=== PATIENT | male | born 1970 | race Caucasian/White ===

== ENCOUNTER 2019-06-28 11:50 | Emergency (ER) | payer MEDICARE, SELFPAY ==
--- NOTE | ~2019-06-28 | XR_ITS ---
EXAMINATION: XR abdomen/kub 1V DATE: 06/28/2019 16:23 INDICATION: Left-sided kidney stone TECHNIQUE: A supine view of the abdomen on 2 radiographs was obtained. COMPARISON: None FINDINGS: 9 mm stone projects over the left psoas muscle likely in the proximal left ureter. 2 mm stone project s over the lower pole of the right kidney. There are likely a couple additional tiny stones at the mi d right kidney however sensitivity and specificity is decreased by prominent mild stool in the superi mposed colon. No definitive stone seen in the left kidney. Linear pattern of calcifications projectin g over the left sacral ala with orientation suggesting atherosclerotic calcific a cyst in the left co mmon iliac artery. No dilated loops of bowel to suggest obstruction. Visualized lung bases are clear. Bones are unremarkable. IMPRESSION: 1. 9 mm stone in the proximal left ureter. At least one and likely three, 2 mm or smaller stones at t he right kidney. Reviewed, dictated and finalized at location A. ENT DEVELOPMENT COORDINATOR IMPRESSION: 1. 9 mm stone in the proximal left ureter. At least one and likely three, 2 mm or smaller stones at the right kidney.
[2019-06-28 12:01] VITALS: BP 141/86; PULSE 78; RESP 20; TEMP 37.1; O2SAT 98
--- NOTE | 2019-06-28 13:06 | ED.MALEGU ---
HPI - Male Genitourinary General Chief complaint: Urogenital-Male Stated complaint: Needs referral to urology Time Seen by Provider: 06/28/19 13:05 Source: patient and RN notes reviewed Mode of arrival: ambulatory Limitations: no limitations History of Present Illness HPI Narrative: A 49 y/o male presents to the ED with LLQ ABD and lt groin pain beginning this morning. He states that he developed severe LLQ ABD and lt groin pain this morning and was seen in [facility] ED. He reports that he had a ABD CT which showed a 5mm lt kidney stone, so he was given pain medication which alleviated his pain. He notes that [facility] didn't have a urologist conduit mechanic, so they d/c him and recommended that he comes here or goes to [facility]. He denies any fevers, chills, SOB, CP, N/V/D, and any other medical complaints at this time. Complaint: other (LLQ ABD and lt groin pain) Onset (ago): hour(s) (this morning) Duration: improved Location: left inguinal region and abdomen (LLQ) Relieving factors: medication Associated symptoms: Reports denies other symptoms Related Data Allergies Allergy/AdvReac Type Severity Reaction Status Date / Time No Known Allergies Allergy Verified 06/28/19 12:04 Review of Systems Review of Systems: All systems reviewed & are unremarkable except as noted in HPI and below Constitutional: Constitutional: Denies chills, Denies fatigue, Denies fever(s), Denies headache(s) and Denies night sweats Eyes: Eyes: Denies change in vision, Denies loss of vision and Denies other visual disturbances ENT: Denies headache(s), Denies hoarseness, Denies epistaxis, Denies nasal congestion and Denies sore throat Cardiovascular: Cardiovascular: Denies chest pain, Denies leg edema, Denies palpitations and Denies dyspnea Respiratory: Respiratory: Denies cough, Denies dyspnea and Denies wheezing Gastrointestinal: Gastrointestinal: Reports abdominal pain (LLQ), Denies diarrhea, Denies nausea and Denies vomiting Genitourinary: Genitourinary: Denies hematuria, Denies dysuria, Denies urinary frequency and Reports other (lt groin pain) Musculoskeletal: Musculoskeletal: Denies abnormal gait, Denies deformity, Denies joint swelling, Denies muscle weakness and Denies numbness Integumentary/Breasts: Skin/Breast: Denies rash, Denies unusual bruising and Denies wounds Neurologic: Denies abnormal gait, Denies headache(s), Denies focal weakness, Denies loss of vision and Denies numbness Psychiatric: Psychiatric: Reports no additional psychiatric complaints Endocrine: Endocrine: Denies fatigue and Denies palpitations Hematologic/Lymphatic: Hematologic/Lymphatic: Denies easy bleeding and Denies easy bruising Allergic/Immunologic: Allergic/Immunologic: Denies wheezing PMFSH Past Medical History Medical History (Updated 06/28/19 @ 17:50 by Viktor Chowdhury MD) Blindness of both eyes Medical history unknown Surgical History Surgical History (Updated 06/28/19 @ 14:23 by Jase Patrick) 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 Surgical history unknown Social History Social History (Updated 06/28/19 @ 14:23 by Jase Patrick) Smoking status: Unknown if ever smoked Comments PCP: Dr. Moon. Exam Const: General: healthy appearing, no acute distress and well developed Nutritional Appearance: well nourished Orientation/consciousness: patient oriented x3 (alert) and Other orientation findings (Alert) Limitations: no limitations HENMT: Head: normocephalic and atraumatic Ears: external ears normal General nose exam: No nasal discharge present and no epistaxis Face and sinus: face symmetric Mouth: Yes lip normal, Yes tongue normal and Yes moist mucous membranes Throat: other (No exudate, no erythema) Eyes: Conjunctivae: conjunctivae normal Sclera: sclerae normal EOM: EOMs intact bilaterally Neck: Neck: full ROM, no lymphadenopathy and supple Thyroid: thyroid normal Chest: Chest palpation & inspection: no tenderness Resp: Effort & Inspection:
[2019-06-28 13:44] LABS: Basophils Percent Auto 0.5 % (0.2-1.2); Eosinophils Absolute Auto 0.1 K/mm3 (0-0.3); Hematocrit 42.6 % (42.0-52.0); Hemoglobin 14.7 g/dL (14.0-18.0); Immature Granulocyte Absolute 0.03 K/mm3 (0.00-0.031); Immature Granulocyte Percent A 0.4 % (0-0.5); Lymphocytes Absolute Auto 1.32 K/mm3 (0.9-3.2); Lymphocytes Percent Auto 16.7 % (18.3-44.2); Mean Corpuscular HGB Conc 34.5 g/dl (32-36); Mean Corpuscular Hemoglobin 33.6 pg (26-34); Mean Corpuscular Volume 97.3 fl (80-100); Mean Platelet Volume 9.6 fl (7.4-10.4); Monocytes Absolute Auto 0.8 K/mm3 (0.1-0.6); Monocytes Percent Auto 10.1 % (2.6-8.5); Neutrophils Absolute Auto 5.6 K/mm3 (1.3-6.7); Neutrophils Percent Auto 71.3 % (45.5-73.1); Platelet Count Result 210 k/mm3 (150-375); Red Blood Count 4.38 M/mm3 (4.6-6.20); Red Cell Distribution Width 12.3 % (11.5-14.5); White Blood Count 7.9 K/mm3 (4.5-10.0)
[2019-06-28 13:54] LABS: Alanine Aminotransferase 19 U/L (4-50); Alkaline Phosphatase 41 U/L (38-126); Aspartate Amino Transferase 21 U/L (17-59); Bilirubin,Total 0.9 mg/dL (0.2-1.3); Blood Urea Nitrogen 24 mg/dL (9-20); Calcium 8.9 mg/dL (8.4-10.2); Carbon Dioxide 23 mmol/L (22-30); Chloride 99 mmol/L (98-107); Estimated CRCL calculation 59 ml/min; Estimated Glomerular Filt Rate 47; Glucose 110 mg/dL (75-110); Potassium 4.5 mmol/L (3.4-5.0); Sodium 136 mmol/L (137-145)
[2019-06-28 14:46] LABS: Add Urine Microscopic? NO; Appearance Urine Clear (Clear); Bilirubin Urine Negative (Negative); Blood Urine Negative (Negative); Color Urine Yellow (Yellow); Glucose Urine UA Negative (Negative); Ketones Urine Negative (Negative); Leukocyte Esterase Ur Negative LEU/UL (Negative); Mucus Urine Rare /lpf; Nitrate Urine Negative (Negative); Protein Urine Negative (Negative); RBC Urine 0-2 /hpf (0-2); Specific Grav Ur 1.015 (1.001-1.035); Urobilinogen Urine Negative mg/dL (<2.0); WBC Urine 0-3 /hpf
--- NOTE | 2019-06-28 15:43 | PC.NURSE ---
Dr. Chowdhury notified that pt is having 8/10 left flank and lower left quadrant pain. Dr. Chowdhury said to not put in any pain medication or give any medication yet. Dr. Chowdhury stated that he is aware of the pain and he wants to talk to urology first.
[2019-06-28] MEDS: ONDANSETRON HCL ODT 4 MG TABLET PO (16:02)
--- NOTE | 2019-06-28 16:03 | PC.NURSE ---
Dr. Chowdhury was reminded that pt had an IV for pain medication and anti emetic. Dr. Chowdhury acknowledged pt's IV and stated that pt would be going home and will just take the PO meds. Dr. Chowdhury reminded that pt was having 8-9/[address] Chowdhury again stated that pt will just take the PO meds and not any IV meds instead. Pt and his very aggravated about the delay in getting answers about what was happening today and about the delay in pain medication. I attempted to discuss the process of Dr. Chowdhruy talking to [place] about pt's earlier visit today and the urologist but pt and his became increasingly agitated and raising their voices, asking, What is the REAL problem here? What is going on?! ALISA Gandhi, and myself reinforced the fact that we were working to give them answers, provide medication, and prepare them to go home and be more comfortable and follow up with urology.
[2019-06-28] MEDS: TAMSULOSIN HCL 0.4 MG CAPSULE PO (17:04)
== END 2019-06-28 18:06 | disposition home or self-care (01) ==
PROVIDERS: Emergency Provider Emergency Medicine
DX: N20.2 Calculus of kidney with calculus of ureter (principal); Z94.7 Corneal transplant status; H54.3 Unqualified visual loss, both eyes
CPT/HCPCS: 36415; 74018; 80053; 81003; 85025; 99283; A9270

== ENCOUNTER 2024-04-29 06:17 | Inpatient (IN) | payer MEDICARE, SELFPAY ==
[2024-04-29] VITALS (10 sets, daily range): BP systolic 117–147; BP diastolic 59–94; PULSE 92–130; RESP 13–23; TEMP 36.9; O2SAT 94–99; BMI 30.2
--- NOTE | ~2024-04-29 | CT_ITS ---
CT soft tissue neck w con Ordering provider: Capri Storey MD History: 54 years Male with . Abscess back of the neck . Comparison: None. Technique: CT soft tissues neck was performed with contrast. . Automated exposure control and iterat marian reconstruction technique were employed. The dose-length product was 499.81 mGy-cm. 75 mL Omnipaqu e 350 was given IV. Findings: LOWER HEAD: The visualized brain parenchyma, optic globes/orbits and mastoids are normal. The visua lized paranasal sinuses are well aerated. Right maxillary sinus disease. SALIVARY GLANDS: Normal. THYROID: Normal. SUPRAHYOID DEEP SPACES: Normal. CAROTID ARTERIES: Normal. JUGULAR VEINS: Normal. TONSILS: Normal. ORAL CAVITY: Partially obscured by dental amalgam but normal as visualized. PHARYNX, LARYNX AND TRACHEA: Patent and normal. No prevertebral soft tissue swelling. SUPERFICIAL SOFT TISSUES: Fat stranding seen in the subcutaneous tissues of the back of the neck with minimal fluid seen on the right side posterior to the muscles. Early abscess formation is not exclud ed. No lymphadenopathy or neck mass. THORACIC INLET/VISUALIZED UPPER CHEST: Normal. SKELETAL: Age appropriate degenerative changes. IMPRESSION: Fat stranding in the posterior aspect of the neck subcutaneous tissues suggestive of cellulitis with focal area of fluid adjacent to the muscles on the right side with thickness of 6 mm suggestive of ea rly abscess formation. Follow-up advised. Reviewed, dictated and finalized at location A. [facility] IMPRESSION: Fat stranding in the posterior aspect of the neck subcutaneous tissues suggesti ve of cellulitis with focal area of fluid adjacent to the muscles on the right side with thickness of 6 mm suggestive of early abscess formation. Follow-up ad vised.
--- NOTE | ~2024-04-29 | CT_ITS ---
CORRECTED REPORT corrected order to CT soft tissue neck w [facility] [place] 05/01/24 This report was recreated on 05/01/24. Original report was BOTOMY LAB ASSISTANT EXAMINATION: CT soft tissue neck w DATE: 05/01/2024 16:37 INDICATION: Neck abscess. TECHNIQUE: Computed tomography (CT) of the neck was performed with 75 mL Omnipaque-350 intravenous contrast. Automated exposure control and iterative reconstruction technique were employed. The dose-length product was 567.48 mGy- cm. COMPARISON: Neck CT 04/29/2024 FINDINGS: There are implants in the orbits bilaterally. There are surgical changes of the ocular globes. There are no pathologically enlarged lymph nodes. In the posterior neck, there is subcutaneous fat stranding, consistent with cellulitis. There is hypodensity in the right posterior neck musculature, consistent with myositis. The mastoid air cells are normal. There is moderate cervical spondylosis. IMPRESSION: 1. Posterior neck cellulitis and myositis. No abscess. Reviewed, dictated and finalized at location A. BOTOMY LAB ASSISTANT MTDD
--- NOTE | 2024-04-29 07:35 | ED_ITS ---
HPI - Skin/Abscess/Foreign Bdy General Chief complaint: Skin/Abscess/Foreign Body Stated complaint: abscess on neck Time Seen by Provider: 04/29/24 07:09 Source: patient and family Mode of arrival: ambulatory Limitations: no limitations History of Present Illness HPI narrative: 54 years old white male came to the ED with intermittent infection at the back of his neck for over 1 year. Patient reports it get bigger then open up and leak and then be, sore and then resolves. Started again at thanks given, not improving, getting worse. History of diabetes hyperlipidemia, does not smoke or drink or use drugs, legally blind Related Data Home Medications ?Medication ?Instructions ?Recorded ?Confirmed ?Last Taken ?Type albuterol sulfate 90 mcg/actuation 2 puff inhalation Q4H PRN 04/29/24 04/29/24 10/19/23 History aerosol inhaler shortness of breath or wheezing alprazolam 0.25 mg tablet 0.25 mg PO DAILY PRN anxiety 04/29/24 04/29/24 04/28/24 History aspirin 81 mg tablet,delayed 81 mg PO QHS 04/29/24 04/29/24 04/28/24 History release (Adult Aspirin Regimen) brimonidine 0.15 % eye drops 1 drp RIGHT EYE DAILY 04/29/24 04/29/24 04/28/24 History latanoprostene bunod 0.024 % eye 1 drp RIGHT EYE QHS 04/29/24 04/29/24 04/28/24 History drops (Vyzulta) metformin 500 mg tablet 500 mg PO QPM 04/29/24 04/29/24 04/28/24 History mycophenolate mofetil 250 mg 500 mg PO BID 04/29/24 04/29/24 04/28/24 History capsule ofloxacin 0.3 % eye drops 1 drp EACH EYE BID 04/29/24 04/29/24 04/28/24 History prednisolone acetate 1 % eye 1 drp EACH EYE BID 04/29/24 04/29/24 04/29/24 History drops,suspension semaglutide 0.25 mg or 0.5 mg (2 0.25 mg subcut WEEKLY 04/29/24 04/29/24 04/22/24 History mg/3 mL) subcutaneous pen injector (Ozempic) simvastatin 40 mg tablet 40 mg PO QHS 04/29/24 04/29/24 04/28/24 History timolol maleate 0.5 % eye drops 1 drp RIGHT EYE QHS 04/29/24 04/29/24 04/28/24 History valacyclovir 1 gram tablet 1,000 mg PO Q12H 04/29/24 04/29/24 04/28/24 History zolpidem 10 mg tablet 20 mg PO QHS PRN insomnia 04/29/24 04/29/24 04/28/24 History Allergies Allergy/AdvReac Type Severity Reaction Status Date / Time No Known Allergies Allergy Verified 04/29/24 06:27 Review of Systems 2 Review of Systems: All systems reviewed & are unremarkable except as noted in HPI and below PMFSH Past Medical History Medical History (Updated 04/29/24 @ 16:39 by Marlee Jang APRN) DM2 (diabetes mellitus, type 2) 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 Social History Social History Smoking status: Never smoker Alcohol intake: never Substance use: never Do You Feel Safe in your Home?: Yes Lack of Transportation: YES Lack of Food: Never True Current Housing: I Do Not Have Housing Concerned About Future Housing: No Difficulty Paying Gas/Electric Bills: No Difficulty Paying for Meds: No Currently Unemployed: No Education: Grade School Difficulty w/ Childcare or Family Care: No Spiritual care concerns: No Exam 2 Narrative: General appearance: Well-developed, well-nourished Skin: Normal color Head: Normocephalic, nontraumatic Eyes: Clear conjunctiva ENT: Oropharynx normal, ears normal, nose normal Neck: 1 cm x 1 cm opening at the back of the neck, with pus at the base of it, surrounded by erythema and diffuse tenderness Chest and respiratory: Airway patent, no respiratory distress, no accessory muscle use Heart: Regular rate/rhythm Musculoskeletal: Normal range of motion, nontender back Neurologic: Alert and oriented ?3, MEDICAL RECORD SPECIALIST is normal as tested, no gross motor deficit Course Consultations Consultation #1: DR GONZALEZ Date: 04/29/24 Time: 11:30 Vital Signs Vital signs: Vital Signs Temperature 36.9 C 04/29/24 06:10 Pulse Rate 128 H 04/29/24 06:10 Respiratory Rate 16 04/29/24 06:10 Blood Pressure 129/94 H 04/29/24 06:10 Pulse Oximetry 99 04/29/24 06:10 Oxygen Delivery Room Air 04/29/24 06:10 Temperature 36.9 C 04/29/24 14:00 Pulse Rate 111 H 04/29/24 14:00 Respiratory Rate 18 04/29/24 14:00 Blood Pressure 135/59 L 04/29/24 14:00 Pulse Oximetry 97 04/29/24 14:00 Oxygen Delivery Room Air 04/29/24 13:00 MDM - Skin/Abscess/Foreign Bdy MDM Narrative Medical decision making narrative: Patient presents with intermittent abscess formation at the back of his neck over 1 year Vital signs showing heart rate of 128 beats per minute Physical examination consistent with infected skin/abscess, carbuncle the back of the neck Blood workup today includes CBC, CMP, blood culture, lactic acid, CRP showed WBC of 21.1, sodium 133, glucose 163, total bilirubin 1.7, C-reactive protein 2.7, CT soft tissue neck with contrast showed cellulitis, abscess formation Patient started on vancomycin and Zosyn on arrival to the ED. Differential Diagnosis Differential diagnosis: Likely abscess of skin or subcutaneous tissue and cellulitis Medical Records Attestation: I reviewed the patient's medical records. Lab Data Attestation: I reviewed the patient's lab results. 04/29/24 08:37 04/29/24 08:37 Labs: Lab Results 04/29/24 Range/Units 08:37 WBC 21.1 H (4.5-10.0) K/mm3 RBC 4.21 L (4.6-6.20) M/mm3 Hgb 14.0 (14.0-18.0) g/dL Hct 40.0 L (42.0-52.0) % MCV 95.0 (80-100) fl MCH 33.3 (26-34) pg MCHC 35.0 (32-36) g/dl RDW 12.6 (11.5-14.5) % Plt Count 250 (150-375) k/mm3 MPV 9.5 (7.4-10.4) fl Immature Gran % (Auto) 0.9 H (0-0.5) % Neut % (Auto) 85.0 H (45.5-73.1) % Lymph % (Auto) 5.5 L (18.3-44.2) % [place] % (Auto) 8.2 (2.6-8.5) % Eos % (Auto) 0.1 (0-4.4) % Baso % (Auto) 0.3 (0.2-1.2) % Lymph # (Auto) 1.15 (0.9-3.2) K/mm3 [place] # (Auto) 1.7 H (0.1-0.6) K/mm3 Eos # (Auto) 0.0 (0-0.3) K/mm3 Baso # (Auto) 0.1 (0.0-0.1) K/mm3 Abs Immat Gran (auto) 0.18 H (0.00-0.031) K/mm3 Absolute Neuts (auto) 17.9 H (1.3-6.7) K/mm3 Absolute Nucleated RBC 0.000 (0.0-0.012) K/mm3 Nucleated RBC % 0.0 (0.0-0.2) % Sodium 133 L (137-145) mmol/L Potassium 3.6 (3.4-5.0) mmol/L Chloride 105 (98-107) mmol/L Carbon Dioxide 24 (22-30) mmol/L Anion Gap 4 (4-12) mmol/L BUN 12 D (9-20) mg/dL Creatinine 0.80 (0.7-1.3) mg/dL Estim Creat Clear Calc 107 ml/min Estimated GFR > 60 (59 - ) Glucose 163 H (65-110) mg/dL Hemoglobin A1c 7.4 H (<5.7) % Lactic Acid 1.6 (0.7-2.0) mmol/L Calcium 8.7 (8.4-10.2) mg/dL Total Bilirubin 1.7 H (0.2-1.3) mg/dL AST 19 (17-59) U/L ALT 22 (6-50) U/L Alkaline Phosphatase 64 (38-126) U/L C-Reactive Protein 2.7 H (<1.0) mg/dL Total Protein 7.0 (6.3-8.2) g/dL Albumin 3.9 (3.5-5.1) g/dL Imaging Data Radiologist's impression: Impressions Soft Tissue Neck CT 04/29/24 09:43 IMPRESSION: Fat stranding in the posterior aspect of the neck subcutaneous tissues suggestive of cellulitis with focal area of fluid adjacent to the muscles on the right side with thickness of 6 mm suggestive of early abscess formation. Follow- up advised. Critical Care Time Critical Care Time Critical Care Time: Yes Total Critical Care Time: 30 Discharge Plan Discharge Clinical Impression: Cellulitis and abscess of neck Patient Disposition: Still a Patient Condition: Stable
[2024-04-29] MEDS: HYDROmorphone HCL INJ (*CRX) 1 MG/ML SYR 0.5 MG IV PUSH (07:53)
[2024-04-29] MEDS: ONDANSETRON INJ 4 MG/2 ML VIAL IV PUSH (07:53)
[2024-04-29] MEDS: SODIUM CHLORIDE 0.9% IV 1,000 ML 999 ML IV CONT (07:53)
[2024-04-29] MEDS: VANCOMYCIN 1,500 MG/NS 500 ML 1,500 MG/500 ML BAG 250 MG IVPB ×2 (09:00→21:23)
[2024-04-29 09:10] LABS: Lactic Acid Reflex 1.6 mmol/L (0.7-2.0)
[2024-04-29 09:14] LABS: Alanine Aminotransferase 22 U/L (6-50); Albumin Level 3.9 g/dL (3.5-5.1); Alkaline Phosphatase 64 U/L (38-126); Anion Gap 4 mmol/L (4-12); Aspartate Amino Transferase 19 U/L (17-59); Bilirubin,Total 1.7 mg/dL (0.2-1.3); Blood Urea Nitrogen 12 mg/dL (9-20); CRP 2.7 mg/dL (<1.0); Calcium 8.7 mg/dL (8.4-10.2); Carbon Dioxide 24 mmol/L (22-30); Chloride 105 mmol/L (98-107); Estimated CRCL calculation 107 ml/min; Estimated Glomerular Filt Rate > 60; Glucose 163 mg/dL (65-110); Potassium 3.6 mmol/L (3.4-5.0); Sodium 133 mmol/L (137-145)
[2024-04-29 09:25] LABS: Basophils Absolute Auto 0.1 K/mm3 (0.0-0.1); Basophils Percent Auto 0.3 % (0.2-1.2); Eosinophils Percent Auto 0.1 % (0-4.4); Immature Granulocyte Absolute 0.18 K/mm3 (0.00-0.031); Immature Granulocyte Percent A 0.9 % (0-0.5); Lymphocytes Absolute Auto 1.15 K/mm3 (0.9-3.2); Lymphocytes Percent Auto 5.5 % (18.3-44.2); Mean Corpuscular Hemoglobin 33.3 pg (26-34); Mean Platelet Volume 9.5 fl (7.4-10.4); Monocytes Absolute Auto 1.7 K/mm3 (0.1-0.6); Monocytes Percent Auto 8.2 % (2.6-8.5); Neutrophils Absolute Auto 17.9 K/mm3 (1.3-6.7); Platelet Count Result 250 k/mm3 (150-375); Red Blood Count 4.21 M/mm3 (4.6-6.20); Red Cell Distribution Width 12.6 % (11.5-14.5); White Blood Count 21.1 K/mm3 (4.5-10.0)
[2024-04-29] MEDS: KETOROLAC 30 MG/ML VIAL (*BKC) IV PUSH (10:16)
[2024-04-29] MEDS: PIPERACILLN/TAZ 3.375GM/NS50ML 3.375 GM/50 ML BAG IVPB ×2 (11:33→16:22)
[2024-04-29 12:01] LABS: Hemoglobin A1C 7.4 % (<5.7)
--- NOTE | 2024-04-29 12:25 | ADMGEN ---
This patient, Jason Granda, was admitted to [facility] Surg Room 330-02. Patient/family oriented to hospital policies and general routines including ID bracelet, bed and alarms, visiting hours, pain management, procedures, bathroom and other care routines, personal items, smoking policy, room service/diet, and visiting hours. Information on how to activate the Rapid Response Team has been discussed. Patient/Family are encouraged to report perceived risks to care and to ask questions if they do not understand what they are told or what they should do.
--- NOTE | 2024-04-29 12:50 | P.HP_ITS ---
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 The patient presents here from home via EMS for further evaluation of a neck wound. The patient reports he has a small chronic cyst to the back of his neck for the past year. Patient reports he would previously pop this region, it would scab over and go away for some time. Recently he try to pop this wound on 04/16. Yesterday (04/28) the area just above where he typically has the small pea-sized knot became tender with increased swelling and redness. Has since become tender to his bilateral shoulders and right side of his neck. When he woke this morning he felt panicked and short of breath, has since resolved. Arrived to the emergency department with a Band-Aid over same region with yellow drainage. The patient is now also experiencing chills, nausea, tachycardia and anxiety. Chills began last night. The patient has been taking Tylenol for this at home, with last dose at 11:00 p.m. last night. Denies dysphagia or intoleran ce of his secretions. No previous history of surgeries to same region. Denies previous history of prior wounds or previous skin infections. Patient has previous hx of prediabetes which was treated with Metformin and weight loss. Did have recent A1C in 9.6% 2 months ago, placed back on Metformin and Ozempic (which has helped patient to lose 25-30 lbs). Initial VS at presentation: 98.4? F, HR 128, RR 16, 129/94, 99% on RA. ED workup showed: WBC 21.1, no anemia, sodium 133, creatinine 0.8 and GFR >60, glucose 163, A1c 7.4%, lactic 1.6, CRP 2.7. CT soft tissue neck showed fat stranding in the posterior aspect of the neck subcutaneous tissues suggestive of cellulitis with focal area of fluid adjacent to the muscles on the right side with thickness of 6 mm suggestive of early abscess formation. 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 Social History Social History Smoking status: Never smoker Alcohol intake: never Substance use: never Do You Feel Safe in your Home?: Yes Lack of Transportation: YES Lack of Food: Never True Current Housing: I Do Not Have Housing Concerned About Future Housing: No Difficulty Paying Gas/Electric Bills: No Difficulty Paying for Meds: No Currently Unemployed: No Education: Grade School Difficulty w/ Childcare or Family Care: No Spiritual care concerns: No Meds Home Medications and Allergies Home Medications ?Medication ?Instructions ?Recorded ?Confirmed ?Type albuterol sulfate 90 mcg/actuation 2 puff inhalation Q4H PRN 04/29/24 04/29/24 History aerosol inhaler shortness of breath or wheezing alprazolam 0.25 mg tablet 0.25 mg PO DAILY PRN anxiety 04/29/24 04/29/24 History aspirin 81 mg tablet,delayed 81 mg PO QHS 04/29/24 04/29/24 History release (Adult Aspirin Regimen) brimonidine 0.15 % eye drops 1 drp RIGHT EYE DAILY 04/29/24 04/29/24 History latanoprostene bunod 0.024 % eye 1 drp RIGHT EYE QHS 04/29/24 04/29/24 History drops (Vyzulta) metformin 500 mg tablet 500 mg PO QPM 04/29/24 04/29/24 History mycophenolate mofetil 250 mg 500 mg PO BID 04/29/24 04/29/24 History capsule ofloxacin 0.3 % eye drops 1 drp EACH EYE BID 04/29/24 04/29/24 History prednisolone acetate 1 % eye 1 drp EACH EYE BID 04/29/24 04/29/24 History drops,suspension semaglutide 0.25 mg or 0.5 mg (2 0.25 mg subcut WEEKLY 04/29/24 04/29/24 History mg/3 mL) subcutaneous pen injector (Ozempic) simvastatin 40 mg tablet 40 mg PO QHS 04/29/24 04/29/24 History timolol maleate 0.5 % eye drops 1 drp RIGHT EYE QHS 04/29/24 04/29/24 History valacyclovir 1 gram tablet 1,000 mg PO Q12H 04/29/24 04/29/24 History zolpidem 10 mg tablet 20 mg PO QHS PRN insomnia 04/29/24 04/29/24 History Allergies Allergy/AdvReac Type Severity Reaction Status Date / Time No Known Allergies Allergy Verified 04/29/24 06:27 Vital Signs Vital Signs - 24 hr 04/29/24 06:10 04/29/24 06:18 04/29/24 06:30 Temperature 98.4 F Pulse Rate 128 H 130 H 130 H Respiratory Rate 16 22 H Blood Pressure 129/94 H 129/94 H Pulse Oximetry 99 99 Oxygen Delivery Room Air 04/29/24 07:58 04/29/24 09:03 04/29/24 09:16 Temperature Pulse Rate 119 H 111 H 109 H Respiratory Rate 22 H 19 19 Blood Pressure 117/94 H 147/75 H Pulse Oximetry 98 94 94 Oxygen Delivery 04/29/24 10:19 04/29/24 12:18 Temperature Pulse Rate 107 H 106 H Respiratory Rate 23 H 13 Blood Pressure 127/88 125/76 Pulse Oximetry 96 97 Oxygen Delivery Exam Const: General: comfortable and no acute distress Other: , male, nontoxic appearance HENMT: Face/Nose/Sinus: Normal nares present Mouth: Yes moist mucous membranes Eyes: Sclera: sclerae normal Other: + strabismus. + blindness bilaterally. Resp: Effort & Inspection: normal respiratory effort Auscultation: clear to auscultation bilaterally Cardio: Rate: regular rate Rhythm: regular rhythm Other: S1-S2 present without murmur, rub, ectopy GI: Other: Abdomen soft, nondistended, nontender. Skin: General skin exam: normal color and no rashes or lesions noted Wounds: wounds noted Other: induration measuring 7 x 2-3 cm, midline and tracks right to lateral neck. very tender. wound not open and has mild erythema with no clear line of demarcation. Neuro: Speech: normal speech Motor exam (neuro): 5/5 motor strength present throughout Sensory Exam: normal sensation Other: A&O x4 Extrem: General: normal to inspection Psych: Mental Status: mental status grossly normal Affect: normal affect Other: Good insight and judgment, very pleasant H&P: Results Labs Labs: Short CBC 04/29/24 Range/Units 08:37 WBC 21.1 H (4.5-10.0) K/mm3 Hgb 14.0 (14.0-18.0) g/dL Hct 40.0 L (42.0-52.0) % Plt Count 250 (150-375) k/mm3 BMP 04/29/24 08:37 Sodium 133 L Potassium 3.6 Chloride 105 Carbon Dioxide 24 BUN 12 D Creatinine 0.80 Glucose 163 H Calcium 8.7 Liver Function 04/29/24 Range/Units 08:37 Total Bilirubin 1.7 H (0.2-1.3) mg/dL AST 19 (17-59) U/L ALT 22 (6-50) U/L Alkaline Phosphatase 64 (38-126) U/L Albumin 3.9 (3.5-5.1) g/dL Assessment and Plan Assessment and plan (1) Sepsis: Qualifiers: Sepsis acute organ dysfunction status: without acute organ dysfunction Sepsis type: sepsis due to unspecified organism Qualified Code(s): A41.9 - Sepsis, unspecified organism Code(s): A41.9 - Sepsis, unspecified organism Status: Acute Assessment and Plan: - meets SIRS criteria: HR, WBC - lactic acid: 1.6 - 30 mL/kg = 2700, initially given 1L bolus in ED and started on maintenance fluids. Will add additional 1L bolus, has already received 1500 mL. - suspected source: Neck abscess - started on Zosyn and vancomycin - blood cultures drawn on 04/29, follow - monitor hemodynamics (2) Cellulitis and abscess of neck: Code(s): L03.221 - Cellulitis of neck; L02.11 - Cutaneous abscess of neck Status: Acute Assessment and Plan: - CT soft tissue neck: Fat stranding in the posterior aspect of the neck subcutaneous tissues suggestive of cellulitis with focal area of fluid adjacent to the muscles on the right side with thickness of 6 mm suggestive of early abscess formation. Follow-up advised. - started on Vancomycin and Zosyn on 04/29 - general surgery consulted, awaiting formal recs - aerobic/anaerobic wound culture, fungal culture? - IV fluids: 1L bolus -> 125 mL/hr - analgesics p.r.n. - trend labs (3) DM2 (diabetes mellitus, type 2): Qualifiers: Diabetes mellitus bed bug exterminator insulin use: without senior care use Diabetes mellitus complication status: with skin complications Diabetes mellitus complication detail: with other skin complication Qualified Code(s): E11.628 - Type 2 diabetes mellitus with other skin complications Code(s): E11.9 - Type 2 diabetes mellitus without complications Status: Acute Assessment and Plan: - hypoglycemia protocol - POC blood glucose ACHS - home medication: Hold Ozempic (NF) and metformin, received contrast during initial evaluation. - correct regimen ordered - moderate dose TIDWM, based off BMI - A1C 7.4% on 04/29/24 Plan Diet: Diabetic GI Prophylaxis: Not currently indicated DVT Prophylaxis: Lovenox subQ Lines: Peripheral Code Status: Full code Quality VTE Prophylaxis VTE prophylaxis: pharmacologic ordered Hospitalist [facility] Advance Care Plan I have confirmed that the patient's Advanced Care Plan is present, code status is documented, or surrogate decision maker is listed in patient medical record.: Yes Medication Reconciliation I have utilized all available resources to obtain, update and review the patients current medications (includes all prescriptions, OTC, herbals, cannabis, and nutritional supplements).: Yes
[2024-04-29] MEDS: LACTATED RINGERS 1,000 ML 999 ML IV CONT (14:07)
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
[2024-04-29] MEDS: HYDROcodone/acetaminophen (*CRX) 5-325 MG TABLET 1 TAB PO (16:23)
--- NOTE | 2024-04-29 16:23 | PCWOUND ---
WOCN NOTE Received consult for posterior neck wound. Surgery also consulted for same area. Spoke with Janel BENEDICT for General Surgery. Received orders to cancel wound nurse consult. No wound is present.
[2024-04-29] MEDS: SODIUM CHLORIDE 0.9% IV 1,000 ML 125 ML IV CONT (16:24)
[2024-04-29] MEDS: ENOXAPARIN 40 MG/0.4 ML SYRINGE SUB-Q (16:24)
[2024-04-29] MEDS: INSULIN ASPART (*BKC) 100 UNITS/ML SUB-Q (16:36)
[2024-04-29 16:44] LABS: Glucose Point of Care 213 mg/dl (65-105)
[2024-04-29] MEDS: mycophenolate mofetiL 250 MG CAPSULE 500 MG PO (18:23)
[2024-04-29] MEDS: prednisoLONE ACETATE 1% OPHTH 5 ML 1 DROP EACH EYE (21:00)
[2024-04-29] MEDS: OFLOXACIN 0.3% OPHTH SOLN 5 ML BTL 1 DROP EACH EYE (21:00)
[2024-04-29 21:17] LABS: Glucose Point of Care 165 mg/dl (65-105)
[2024-04-29] MEDS: ASPIRIN 81 MG ENTERIC TABLET PO (21:26)
[2024-04-29] MEDS: valACYclovir HCL 500 MG TABLET 1000 MG PO (21:27)
[2024-04-29] MEDS: SIMVASTATIN 20 MG TABLET 40 MG PO (21:27)
[2024-04-29] MEDS: ZOLPIDEM TARTRATE (*CRX) 5 MG TABLET 20 MG PO (21:28)
[2024-04-29] MEDS: TIMOLOL MALEATE 0.5% OP SOLN 5 ML BOTTLE 1 DROP RIGHT EYE (21:36)
[2024-04-29] MEDS: MORPHINE SULFATE (*CRX) 4 MG/ML INJ IV PUSH (23:28)
[2024-04-30] MEDS: PIPERACILLN/TAZ 3.375GM/NS50ML 3.375 GM/50 ML BAG IVPB ×5 (00:39→21:06)
[2024-04-30] MEDS: HYDROcodone/acetaminophen (*CRX) 5-325 MG TABLET 1 TAB PO ×2 (04:36→17:12)
[2024-04-30 05:09] VITALS: BP 120/80; PULSE 107; RESP 18; TEMP 36.8; O2SAT 99
[2024-04-30] MEDS: SODIUM CHLORIDE 0.9% IV 1,000 ML 125 ML IV CONT (06:14)
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
[2024-04-30 08:27] LABS: Basophils Percent Auto 0.2 % (0.2-1.2); Eosinophils Absolute Auto 0.1 K/mm3 (0-0.3); Eosinophils Percent Auto 0.9 % (0-4.4); Hematocrit 39.1 % (42.0-52.0); Hemoglobin 13.4 g/dL (14.0-18.0); Immature Granulocyte Absolute 0.07 K/mm3 (0.00-0.031); Immature Granulocyte Percent A 0.6 % (0-0.5); Lymphocytes Absolute Auto 1.76 K/mm3 (0.9-3.2); Lymphocytes Percent Auto 14.4 % (18.3-44.2); Mean Corpuscular HGB Conc 34.3 g/dl (32-36); Mean Corpuscular Hemoglobin 33.8 pg (26-34); Mean Corpuscular Volume 98.5 fl (80-100); Mean Platelet Volume 9.7 fl (7.4-10.4); Monocytes Percent Auto 7.8 % (2.6-8.5); Neutrophils Absolute Auto 9.3 K/mm3 (1.3-6.7); Neutrophils Percent Auto 76.1 % (45.5-73.1); Platelet Count Result 221 k/mm3 (150-375); Red Blood Count 3.97 M/mm3 (4.6-6.20); Red Cell Distribution Width 12.6 % (11.5-14.5); White Blood Count 12.3 K/mm3 (4.5-10.0)
[2024-04-30 08:39] LABS: Glucose Point of Care 134 mg/dl (65-105)
[2024-04-30 08:48] LABS: Anion Gap 1 mmol/L (4-12); Blood Urea Nitrogen 10 mg/dL (9-20); Calcium 8.1 mg/dL (8.4-10.2); Carbon Dioxide 28 mmol/L (22-30); Chloride 108 mmol/L (98-107); Estimated CRCL calculation 79 ml/min; Estimated Glomerular Filt Rate > 60; Glucose 131 mg/dL (65-110); Sodium 137 mmol/L (137-145)
[2024-04-30] MEDS: VANCOMYCIN 1,500 MG/NS 500 ML 1,500 MG/500 ML BAG 250 MG IVPB (08:58)
[2024-04-30] MEDS: valACYclovir HCL 500 MG TABLET 1000 MG PO ×2 (09:01→21:03)
[2024-04-30] MEDS: OFLOXACIN 0.3% OPHTH SOLN 5 ML BTL 1 DROP EACH EYE ×2 (09:01→17:24)
[2024-04-30] MEDS: mycophenolate mofetiL 250 MG CAPSULE 500 MG PO ×2 (09:01→17:22)
[2024-04-30] MEDS: BRIMONIDINE TARTRATE 0.15% 5 ML OPHTH SOLN 1 DROP RIGHT EYE (09:02)
[2024-04-30] MEDS: prednisoLONE ACETATE 1% OPHTH 5 ML 1 DROP EACH EYE ×2 (09:02→17:24)
[2024-04-30] MEDS: ENOXAPARIN 40 MG/0.4 ML SYRINGE SUB-Q (09:02)
[2024-04-30] MEDS: MORPHINE SULFATE (*CRX) 4 MG/ML INJ IV PUSH ×3 (11:20→21:49)
[2024-04-30 12:15] LABS: Glucose Point of Care 215 mg/dl (65-105)
--- NOTE | 2024-04-30 13:04 | PM.PNGS ---
Progress Note: A&P Assessment and Plan (1) Cellulitis of neck: Code(s): L03.221 - Cellulitis of neck Status: Acute Assessment and Plan: Cellulitis of the soft tissues of the posterior neck and extending to the right musculature. Still having some pain and tenderness. No obvious abscess or fluctuant areas on exam. WBC trending down to 12,000 today. Continue IV antibiotics and will monitor (2) Sepsis: Qualifiers: Sepsis type: sepsis due to unspecified organism Sepsis acute organ dysfunction status: without acute organ dysfunction Qualified Code(s): A41.9 - Sepsis, unspecified organism Code(s): A41.9 - Sepsis, unspecified organism Status: Acute Assessment and Plan: Leukocytosis and tachycardia improved. Continue IV antibiotics. Blood cultures pending (3) DM2 (diabetes mellitus, type 2): Qualifiers: Diabetes mellitus intermediate project manager insulin use: without snf use Diabetes mellitus complication status: with skin complications Diabetes mellitus complication detail: with other skin complication Qualified Code(s): E11.628 - Type 2 diabetes mellitus with other skin complications Code(s): E11.9 - Type 2 diabetes mellitus without complications Status: Acute Plan I have discussed the patient's case and plan of care with Dr. Gutierrez. Subjective Subjective Date/Time Seen: 04/30/24 13:04 Patient reports: still having pain and afebrile Interval history: Patient still complaining of neck pain and reports it is more on the right side of his neck and into his right shoulder today. No fevers. No new complaints or acute events overnight. White blood cell count down to 12,000. Exam Const: General: comfortable and no acute distress Neck: Other: Small area of induration and erythema to the base of the posterior neck at midline with swelling extending to the right neck and over the right trapezius. He is primarily tender over the swelling on the right side with some mild erythema noted this morning. No drainage or open wound from the posterior neck. No obvious fluctuant areas consistent with an abscess. Objective Data Vital Signs Vital Signs: Vital Signs - 24 hr 04/29/24 14:00 04/29/24 20:00 04/29/24 22:00 Temperature 98.4 F 98.4 F Pulse Rate 111 H 92 Respiratory Rate 18 18 Blood Pressure 135/59 L 138/82 Pulse Oximetry 97 99 Oxygen Delivery Room Air 04/30/24 05:09 Temperature 98.2 F Pulse Rate 107 H Respiratory Rate 18 Blood Pressure 120/80 Pulse Oximetry 99 Oxygen Delivery Intake/Output Intake/Output: Intake & Output 04/27/24 04/28/24 04/29/24 04/30/24 23:59 23:59 23:59 23:59 Intake Total 2820 2700 Output Total 1700 Balance 2820 1000 Meds/Results Medications: Active Medications Generic Name Dose Route Start Last Admin Trade Name Freq PRN Reason Stop Dose Admin Acetaminophen 650 mg 04/29/24 11:30 Acetaminophen 325 Mg Tablet PO Q4H PRN Mild Pain (1-3) or Fever Hydrocodone Bitart/Acetaminophen 1 tab 04/29/24 12:58 04/30/24 04:36 Hydrocodone/Acetaminophen (*Crx) 5-325 Mg Tablet PO 1 tab Q6H PRN Administration Pain Rated 4-6 Albuterol 2 puff 04/29/24 16:38 Albuterol Sulfate (*Sp) Aerosol 1 Puff INHALATION Q4H PRN shortness of breath or wheezing Alprazolam 0.25 mg 04/29/24 16:38 Alprazolam (*Crx) 0.25 Mg Tablet PO DAILY PRN anxiety Aspirin 81 mg 04/29/24 21:00 04/29/24 21:26 Aspirin 81 Mg Enteric Tablet PO 81 mg QHS CUBA Administration Brimonidine Tartrate 1 drop 04/30/24 09:00 04/30/24 09:02 Brimonidine Tartrate 0.15% 5 Ml Ophth Soln RIGHT EYE 1 drop DAILY CUBA Administration Dextrose 12.5 gm 04/29/24 13:02 Dextrose 50% 25 Gm/50 Ml Syringe IV PUSH PRN PRN Hypoglycemia Protocol Enoxaparin Sodium 40 mg 04/29/24 09:00 04/30/24 09:02 Enoxaparin 40 Mg/0.4 Ml Syringe SUB-Q 40 mg DAILY CUBA Administration Glucagon 1 mg 04/29/24 13:02 Glucagon For Inj 1 Mg Vial IM PRN PRN Hypoglycemia Protocol Glucose 15 gm 04/29/24 13:02 Glucose Oral Gel 15 Gm Of Glucse In 37.5 Gm Tube PO PRN PRN Hypoglycemia Protocol Vancomycin HCl 1,500 mg in 500 mls @ 250 mls/hr 04/29/24 21:00 04/30/24 08:58 Vancomycin 1,500 Mg/Ns 500 Ml IVPB 250 mls/hr Q12H CUBA Administration Piperacillin/Tazobactam/Dextrose 3.375 gm in 50 mls @ 100 mls/hr 04/29/24 10:35 04/30/24 11:10 Zosyn 3.375 Gm/Ns 50 Ml IVPB 100 mls/hr Q6H CUBA Administration Sodium Chloride 1,000 mls @ 125 mls/hr 04/29/24 11:30 04/30/24 06:14 Normal Saline Iv IV CONT 125 mls/hr .Q8H CUBA Administration Dextrose 1,000 mls @ 100 mls/hr 04/29/24 13:02 Dextrose 5% 1,000 Ml IVPB PRN PRN Hypoglycemia Protocol Insulin Aspart 3 - 6 units 04/29/24 17:00 04/29/24 16:36 Insulin Aspart (*Bkc) 100 Units/Ml SUB-Q 3 units TIDWM CUBA Administration Protocol Morphine Sulfate 4 mg 04/29/24 11:30 04/30/24 11:20 Morphine Sulfate (*Crx) 4 Mg/Ml Inj IV PUSH 4 mg Q2H PRN Administration Pain Rated 7-10 Mycophenolate Mofetil 500 mg 04/29/24 17:00 04/30/24 09:01 Mycophenolate Mofetil 250 Mg Capsule PO 500 mg BID CUBA Administration Ofloxacin 1 drop 04/29/24 17:00 04/30/24 09:01 Ofloxacin 0.3% Ophth Soln 5 Ml Btl EACH EYE 1 drop BID CUBA Administration Ondansetron HCl 4 mg 04/29/24 11:30 Ondansetron Inj 4 Mg/2 Ml Vial IV PUSH Q4H PRN Nausea Prednisolone Acetate 1 drop 04/29/24 17:00 04/30/24 09:02 Prednisolone Acetate 1% Ophth 5 Ml EACH EYE 1 drop BID CUBA Administration Simvastatin 40 mg 04/29/24 21:00 04/29/24 21:27 Simvastatin 20 Mg Tablet PO 40 mg QHS CUBA Administration Timolol Maleate 1 drop 04/29/24 21:00 04/29/24 21:36 Timolol Maleate 0.5% Op Soln 5 Ml Bottle RIGHT EYE 1 drop QHS CUBA Administration Valacyclovir HCl 1,000 mg 04/29/24 21:00 04/30/24 09:01 Valacyclovir Hcl 500 Mg Tablet PO 1,000 mg Q12HR CUBA Administration Zolpidem Tartrate 20 mg 04/29/24 16:38 04/29/24 21:28 Zolpidem Tartrate (*Crx) 5 Mg Tablet PO 20 mg QHS PRN Administration insomnia Radiology Results: ITS Impressions Soft Tissue Neck CT 04/29/24 09:43 IMPRESSION: Fat stranding in the posterior aspect of the neck subcutaneous tissues suggestive of cellulitis with focal area of fluid adjacent to the muscles on the right side with thickness of 6 mm suggestive of early abscess formation. Follow-up advised. Labs Labs: Laboratory Results - last 24 hr 04/29/24 04/29/24 04/30/24 16:29 21:13 07:51 WBC 12.3 H RBC 3.97 L Hgb 13.4 L Hct 39.1 L MCV 98.5 MCH 33.8 MCHC 34.3 RDW 12.6 Plt Count 221 MPV 9.7 Immature Gran % (Auto) 0.6 H Neut % (Auto) 76.1 H Lymph % (Auto) 14.4 L [place] % (Auto) 7.8 Eos % (Auto) 0.9 Baso % (Auto) 0.2 Lymph # (Auto) 1.76 [place] # (Auto) 1.0 H Eos # (Auto) 0.1 Baso # (Auto) 0.0 Abs Immat Gran (auto) 0.07 H Absolute Neuts (auto) 9.3 H Absolute Nucleated RBC 0.000 Nucleated RBC % 0.0 Sodium 137 Potassium 4.0 Chloride 108 H Carbon Dioxide 28 Anion Gap 1 L BUN 10 Creatinine 1.10 Estim Creat Clear Calc 79 Estimated GFR > 60 Glucose 131 H POC Capillary Glucose 213 H 165 H Calcium 8.1 L 04/30/24 04/30/24 08:19 12:10 WBC RBC Hgb Hct MCV MCH MCHC RDW Plt Count MPV Immature Gran % (Auto) Neut % (Auto) Lymph % (Auto) [place] % (Auto) Eos % (Auto) Baso % (Auto) Lymph # (Auto) [place] # (Auto) Eos # (Auto) Baso # (Auto) Abs Immat Gran (auto) Absolute Neuts (auto) Absolute Nucleated RBC Nucleated RBC % Sodium Potassium Chloride Carbon Dioxide Anion Gap BUN Creatinine Estim Creat Clear Calc Estimated GFR Glucose POC Capillary Glucose 134 H 215 H Calcium
[2024-04-30] MEDS: INSULIN ASPART (*BKC) 100 UNITS/ML SUB-Q (13:09)
[2024-04-30 14:00] VITALS: BP 132/81; PULSE 91; RESP 20; TEMP 36.5; O2SAT 98
[2024-04-30 17:13] LABS: Glucose Point of Care 139 mg/dl (65-105)
[2024-04-30 19:00] VITALS: BP 120/6; PULSE 100; RESP 20; TEMP 36.5; O2SAT 100
[2024-04-30 20:27] LABS: Vancomycin Trough 7.2 ug/mL (10.0-20.0)
[2024-04-30 20:43] LABS: Glucose Point of Care 183 mg/dl (65-105)
[2024-04-30] MEDS: ZOLPIDEM TARTRATE (*CRX) 5 MG TABLET 20 MG PO (21:03)
[2024-04-30] MEDS: SIMVASTATIN 20 MG TABLET 40 MG PO (21:04)
[2024-04-30] MEDS: ASPIRIN 81 MG ENTERIC TABLET PO (21:04)
[2024-04-30] MEDS: TIMOLOL MALEATE 0.5% OP SOLN 5 ML BOTTLE 1 DROP RIGHT EYE (21:05)
[2024-04-30] MEDS: VANCOMYCIN 2,000 MG/NS 500 ML 2,000 MG/500 ML BAG 250 MG IVPB (21:43)
[2024-04-30 22:00] VITALS: BP 132/98; PULSE 90; RESP 14; TEMP 36.6; O2SAT 100
[2024-05-01] MEDS: PIPERACILLN/TAZ 3.375GM/NS50ML 3.375 GM/50 ML BAG IVPB (05:31)
[2024-05-01 06:00] VITALS: BP 122/89; PULSE 96; RESP 18; TEMP 37; O2SAT 98
[2024-05-01 06:29] LABS: Basophils Absolute Auto 0.1 K/mm3 (0.0-0.1); Basophils Percent Auto 0.5 % (0.2-1.2); Eosinophils Absolute Auto 0.3 K/mm3 (0-0.3); Eosinophils Percent Auto 2.3 % (0-4.4); Hematocrit 37.5 % (42.0-52.0); Hemoglobin 13.1 g/dL (14.0-18.0); Immature Granulocyte Absolute 0.03 K/mm3 (0.00-0.031); Immature Granulocyte Percent A 0.3 % (0-0.5); Lymphocytes Absolute Auto 1.59 K/mm3 (0.9-3.2); Lymphocytes Percent Auto 14.5 % (18.3-44.2); Mean Corpuscular HGB Conc 34.9 g/dl (32-36); Mean Corpuscular Hemoglobin 33.2 pg (26-34); Mean Corpuscular Volume 94.9 fl (80-100); Mean Platelet Volume 9.4 fl (7.4-10.4); Monocytes Absolute Auto 0.9 K/mm3 (0.1-0.6); Monocytes Percent Auto 7.7 % (2.6-8.5); Neutrophils Absolute Auto 8.2 K/mm3 (1.3-6.7); Neutrophils Percent Auto 74.7 % (45.5-73.1); Platelet Count Result 230 k/mm3 (150-375); Red Blood Count 3.95 M/mm3 (4.6-6.20); Red Cell Distribution Width 12.3 % (11.5-14.5)
[2024-05-01 06:42] LABS: Alanine Aminotransferase 17 U/L (6-50); Albumin Level 3.4 g/dL (3.5-5.1); Alkaline Phosphatase 57 U/L (38-126); Anion Gap 0 mmol/L (4-12); Aspartate Amino Transferase 15 U/L (17-59); Bilirubin,Total 0.8 mg/dL (0.2-1.3); Blood Urea Nitrogen 8 mg/dL (9-20); Calcium 8.4 mg/dL (8.4-10.2); Carbon Dioxide 28 mmol/L (22-30); Chloride 106 mmol/L (98-107); Estimated CRCL calculation 106 ml/min; Estimated Glomerular Filt Rate > 60; Glucose 132 mg/dL (65-110); Potassium 3.8 mmol/L (3.4-5.0); Sodium 134 mmol/L (137-145)
[2024-05-01 08:04] LABS: Glucose Point of Care 153 mg/dl (65-105)
--- NOTE | 2024-05-01 08:18 | P.PNIM_ITS ---
Progress Note: A&P Assessment and Plan (1) Sepsis: Qualifiers: Sepsis acute organ dysfunction status: without acute organ dysfunction Sepsis type: sepsis due to unspecified organism Qualified Code(s): A41.9 - S epsis, unspecified organism Code(s): A41.9 - Sepsis, unspecified organism Status: Acute Assessment and Plan: - meets SIRS criteria: HR, WBC - lactic acid: 1.6 - 30 mL/kg = 2700, initially given 1L bolus in ED and started on maintenance fluids. Will add additional 1L bolus, has already received 1500 mL. - suspected source: Neck abscess - started on Zosyn and vancomycin - blood cultures drawn on 04/29, NGTD - abscess culture drawn on 04/29, pending - monitor hemodynamics (2) Cellulitis and abscess of neck: Code(s): L03.221 - Cellulitis of neck; L02.11 - Cutaneous abscess of neck Status: Acute Assessment and Plan: - CT soft tissue neck: Fat stranding in the posterior aspect of the neck subcuta neous tissues suggestive of cellulitis with focal area of fluid adjacent to the muscles on the right side with thickness of 6 mm suggestive of early abscess formation. Follow-up advised. - Antibiotics: Vancomycin and Zosyn on 04/29 - aerobic/anaerobic wound culture collected on 04/29: pending - blood culture collected on 04/29: pending - Analgesics p.r.n. - Monitor vital signs, I&Os, neuro status and patient is a fall risk - Monitor serum electrolytes, CBC, cultures, WBC and temp curve - general surgery consulted, awaiting formal recs continue IV antibiotics and closely monitor if he develops a fluctuant area that is consistent with an abscess, then he could eventually require incision and drainage 04/30: Though WBC has improved patients pain and swelling has worsened. Swelling is now at the base of the posterior neck region extending toward the right shoulder and into the right side of the neck and his scalp. Worsening tenderness to palpation throughout and slight clear drainage from the originally site. Call made to surgery and will obtain a new CT to reassess abscess. (3) DM2 (diabetes mellitus, type 2): Qualifiers: Diabetes mellitus complication detail: with other skin complication Diabetes mellitus complication status: with skin complications Diabetes mellitus manager intermediate insulin use: without skilled nursing use Qualified Code(s): E11.628 - Type 2 diabetes mellitus with other skin complications Code(s): E11.9 - Type 2 diabetes mellitus without complications Status: Acute Assessment and Plan: - hypoglycemia protocol - POC blood glucose ACHS - home medication: Hold Ozempic (NF) and metformin, received contrast during initial evaluation. 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 Patient is pleasant lying in bed. Though WBC has improved patients pain and swelling has worsened. Swelling is now at the base of the posterior neck region extending toward the right shoulder and into the right side of the neck and his scalp. Worsening tenderness to palpation throughout and slight clear drainage from the originally site. Patient denies any shortness of breath or dyspnea. Call made to surgery and will obtain a new CT to reassess abscess. Patient has no other complaints denying chest pain, shortness of breath, nausea/vomiting and abdominal pain. Review of Systems Review of Systems: All systems reviewed & are unremarkable except as noted in HPI and below Exam Narrative: AF HR 96 RR 18 Sp2 98 BP 122/89 General: male in no acute respiratory distress who is nontoxic appearing, lying semi recumbent in bed. Chest: Lungs are clear to auscultation bilaterally. No wheezes or crackles. CV: Heart was regular rate and rhythm. S1/S2. No murmurs, gallops, or rubs. Abd: Abdomen was soft. Nontender. Nondistended. Positive bowel sounds. No organomegaly or masses. Ext: No clubbing, cyanosis, or edema. 2+ DP pulses bilaterally. Neuro: Patient is alert. Speech is clear. Skin: Swelling to the base of the posterior neck region that extends toward the right shoulder and now into the right side of the neck and into his scalp. Tenderness to palpation throughout but worse on the right side. Slight clear drainage from the originally site. Pain with movement of the head. Objective Data Vital Signs Vital Signs: Vital Signs - 24 hr 04/30/24 14:00 04/30/24 19:00 04/30/24 20:00 Temperature 97.7 F 97.7 F Pulse Rate 91 100 Respiratory Rate 20 20 Blood Pressure 132/81 120/6 L Pulse Oximetry 98 100 Oxygen Delivery Room Air 04/30/24 22:00 05/01/24 06:00 Temperature 97.8 F 98.6 F Pulse Rate 90 96 Respiratory Rate 14 18 Blood Pressure 132/98 H 122/89 Pulse Oximetry 100 98 Oxygen Delivery Intake/Output Intake/Output: Intake & Output 04/28/24 04/29/24 04/30/24 05/01/24 23:59 23:59 23:59 23:59 Intake Total 2820 4195 1650 Output Total 2700 560 Balance 2820 1495 1090 Meds/Results Medications: Active Medications Generic Name Dose Route Start Last Admin Trade Name Freq PRN Reason Stop Dose Admin Acetaminophen 650 mg 04/29/24 11:30 Acetaminophen 325 Mg Tablet PO Q4H PRN Mild Pain (1-3) or Fever Hydrocodone Bitart/Acetaminophen 1 tab 04/29/24 12:58 04/30/24 17:12 Hydrocodone/Acetaminophen (*Crx) 5-325 Mg Tablet PO 1 tab Q6H PRN Administration Pain Rated 4-6 Albuterol 2 puff 04/29/24 16:38 Albuterol Sulfate (*Sp) Aerosol 1 Puff INHALATION Q4H PRN shortness of breath or wheezing Alprazolam 0.25 mg 04/29/24 16:38 Alprazolam (*Crx) 0.25 Mg Tablet PO DAILY PRN anxiety Aspirin 81 mg 04/29/24 21:00 04/30/24 21:04 Aspirin 81 Mg Enteric Tablet PO 81 mg QHS CUBA Administration Brimonidine Tartrate 1 drop 04/30/24 09:00 04/30/24 09:02 Brimonidine Tartrate 0.15% 5 Ml Ophth Soln RIGHT EYE 1 drop DAILY CUBA Administration Dextrose 12.5 gm 04/29/24 13:02 Dextrose 50% 25 Gm/50 Ml Syringe IV PUSH PRN PRN Hypoglycemia Protocol Enoxaparin Sodium 40 mg 04/29/24 09:00 04/30/24 09:02 Enoxaparin 40 Mg/0.4 Ml Syringe SUB-Q 40 mg DAILY CUBA Administration Glucagon 1 mg 04/29/24 13:02 Glucagon For Inj 1 Mg Vial IM PRN PRN Hypoglycemia Protocol Glucose 15 gm 04/29/24 13:02 Glucose Oral Gel 15 Gm Of Glucse In 37.5 Gm Tube PO PRN PRN Hypoglycemia Protocol Dextrose 1,000 mls @ 100 mls/hr 04/29/24 13:02 Dextrose 5% 1,000 Ml IVPB PRN PRN Hypoglycemia Protocol Vancomycin HCl 2,000 mg in 500 mls @ 250 mls/hr 04/30/24 22:00 05/01/24 00:07 Vancomycin 2,000 Mg/Ns 500 Ml IVPB Infused Q12H [facility] Infusion Piperacillin/Tazobactam/Dextrose 3.375 gm in 50 mls @ 100 mls/hr 05/01/24 12:00 Zosyn 3.375 Gm/Ns 50 Ml IVPB Q6HR [facility] Insulin Aspart 3 - 6 units 04/29/24 17:00 05/01/24 08:03 Insulin Aspart (*Bkc) 100 Units/Ml SUB-Q Not Given TIDWM [facility] Protocol Morphine Sulfate 4 mg 04/29/24 11:30 04/30/24 21:49 Morphine Sulfate (*Crx) 4 Mg/Ml Inj IV PUSH 4 mg Q2H PRN Administration Pain Rated 7-10 Mycophenolate Mofetil 500 mg 04/29/24 17:00 04/30/24 17:22 Mycophenolate Mofetil 250 Mg Capsule PO 500 mg BID [facility] Administration Ofloxacin 1 drop 04/29/24 17:00 04/30/24 17:24 Ofloxacin 0.3% Ophth Soln 5 Ml Btl EACH EYE 1 drop BID CUBA Administration Ondansetron HCl 4 mg 04/29/24 11:30 Ondansetron Inj 4 Mg/2 Ml Vial IV PUSH Q4H PRN Nausea Prednisolone Acetate 1 drop 04/29/24 17:00 04/30/24 17:24 Prednisolone Acetate 1% Ophth 5 Ml EACH EYE 1 drop BID CUBA Administration Simvastatin 40 mg 04/29/24 21:00 04/30/24 21:04 Simvastatin 20 Mg Tablet PO 40 mg QHS CUBA Administration Timolol Maleate 1 drop 04/29/24 21:00 04/30/24 21:05 Timolol Maleate 0.5% Op Soln 5 Ml Bottle RIGHT EYE 1 drop QHS CUBA Administration Valacyclovir HCl 1,000 mg 04/29/24 21:00 04/30/24 21:03 Valacyclovir Hcl 500 Mg Tablet PO 1,000 mg Q12HR CUBA Administration Zolpidem Tartrate 20 mg 04/29/24 16:38 04/30/24 21:03 Zolpidem Tartrate (*Crx) 5 Mg Tablet PO 20 mg QHS PRN Administration insomnia Radiology Results: ITS Impressions Soft Tissue Neck CT 04/29/24 09:43 IMPRESSION: Fat stranding in the posterior aspect of the neck subcutaneous tissues suggestive of cellulitis with focal area of fluid adjacent to the muscles on the right side with thickness of 6 mm suggestive of early abscess formation. Follow- up advised. Labs Labs: Laboratory Results - last 24 hr 04/30/24 04/30/24 04/30/24 07:51 08:19 12:10 WBC 12.3 H RBC 3.97 L Hgb 13.4 L Hct 39.1 L MCV 98.5 MCH 33.8 MCHC 34.3 RDW 12.6 Plt Count 221 MPV 9.7 Immature Gran % (Auto) 0.6 H Neut % (Auto) 76.1 H Lymph % (Auto) 14.4 L [place] % (Auto) 7.8 Eos % (Auto) 0.9 Baso % (Auto) 0.2 Lymph # (Auto) 1.76 [place] # (Auto) 1.0 H Eos # (Auto) 0.1 Baso # (Auto) 0.0 Abs Immat Gran (auto) 0.07 H Absolute Neuts (auto) 9.3 H Absolute Nucleated RBC 0.000 Nucleated RBC % 0.0 Sodium 137 Potassium 4.0 Chloride 108 H Carbon Dioxide 28 Anion Gap 1 L BUN 10 Creatinine 1.10 Estim Creat Clear Calc 79 Estimated GFR > 60 Glucose 131 H POC Capillary Glucose 134 H 215 H Calcium 8.1 L Total Bilirubin AST ALT Alkaline Phosphatase Total Protein Albumin Vancomycin Trough 04/30/24 04/30/24 04/30/24 16:58 19:54 20:38 WBC RBC Hgb Hct MCV MCH MCHC RDW Plt Count MPV Immature Gran % (Auto) Neut % (Auto) Lymph % (Auto) [place] % (Auto) Eos % (Auto) Baso % (Auto) Lymph # (Auto) [place] # (Auto) Eos # (Auto) Baso # (Auto) Abs Immat Gran (auto) Absolute Neuts (auto) Absolute Nucleated RBC Nucleated RBC % Sodium Potassium Chloride Carbon Dioxide Anion Gap BUN Creatinine Estim Creat Clear Calc Estimated GFR Glucose POC Capillary Glucose 139 H 183 H Calcium Total Bilirubin AST ALT Alkaline Phosphatase Total Protein Albumin Vancomycin Trough 7.2 L 05/01/24 05/01/24 06:04 08:00 WBC 11.0 H RBC 3.95 L Hgb 13.1 L Hct 37.5 L MCV 94.9 MCH 33.2 MCHC 34.9 RDW 12.3 Plt Count 230 MPV 9.4 Immature Gran % (Auto) 0.3 Neut % (Auto) 74.7 H Lymph % (Auto) 14.5 L [place] % (Auto) 7.7 Eos % (Auto) 2.3 Baso % (Auto) 0.5 Lymph # (Auto) 1.59 [place] # (Auto) 0.9 H Eos # (Auto) 0.3 Baso # (Auto) 0.1 Abs Immat Gran (auto) 0.03 Absolute Neuts (auto) 8.2 H Absolute Nucleated RBC 0.000 Nucleated RBC % 0.0 Sodium 134 L Potassium 3.8 Chloride 106 Carbon Dioxide 28 Anion Gap 0 L BUN 8 L Creatinine 0.80 Estim Creat Clear Calc 106 Estimated GFR > 60 Glucose 132 H POC Capillary Glucose 153 H Calcium 8.4 Total Bilirubin 0.8 AST 15 L ALT 17 Alkaline Phosphatase 57 Total Protein 6.0 L Albumin 3.4 L Vancomycin Trough Quality VTE Prophylaxis VTE prophylaxis: pharmacologic ordered
[2024-05-01] MEDS: VANCOMYCIN 2,000 MG/NS 500 ML 2,000 MG/500 ML BAG 250 MG IVPB (09:14)
[2024-05-01] MEDS: MORPHINE SULFATE (*CRX) 4 MG/ML INJ IV PUSH ×3 (09:14→21:42)
[2024-05-01] MEDS: prednisoLONE ACETATE 1% OPHTH 5 ML 1 DROP EACH EYE ×2 (09:15→17:40)
[2024-05-01] MEDS: valACYclovir HCL 500 MG TABLET 1000 MG PO ×2 (09:15→21:02)
[2024-05-01] MEDS: mycophenolate mofetiL 250 MG CAPSULE 500 MG PO ×2 (09:15→17:40)
[2024-05-01] MEDS: OFLOXACIN 0.3% OPHTH SOLN 5 ML BTL 1 DROP EACH EYE ×2 (09:15→17:40)
[2024-05-01] MEDS: BRIMONIDINE TARTRATE 0.15% 5 ML OPHTH SOLN 1 DROP RIGHT EYE (09:15)
[2024-05-01] MEDS: ENOXAPARIN 40 MG/0.4 ML SYRINGE SUB-Q (09:16)
--- NOTE | 2024-05-01 10:13 | PC.NURSE ---
RN gave update to patient's mother Debra via telephone on patient status.
[2024-05-01 11:44] LABS: Glucose Point of Care 159 mg/dl (65-105)
[2024-05-01 14:00] VITALS: BP 130/70; PULSE 89; RESP 20; TEMP 36.8; O2SAT 93
[2024-05-01] MEDS: cefTRIAXone 2 GM/NS 100 ML 2 GM/100 ML BAG IVPB (14:04)
--- NOTE | 2024-05-01 16:06 | P.PN_ITS ---
Progress Note: A&P Assessment and Plan (1) Cellulitis of neck: Code(s): L03.221 - Cellulitis of neck Status: Acute Assessment and Plan: Patient continues to have cellulitis of the posterior right neck region. CT scan of the neck 2 days ago revealed only a 6mm area fluid collection but no large drainable abscess. Physical examination today reveals continue cellulitis but no obvious palpable fluctuant area. Given his complaints of increasing pain will get had another CT scan of the neck with IV contrast. For now continue his IV antibiotics. If there is no abscess and there was just continued cellulitic changes then consideration for changing to different antibiotics and consultation to Infectious Disease pharmacists can be considered. He is a diabetic and so cellulitic change can extend for prolonged time. Will follow. Subjective Date/time seen: 05/01/24 16:06 Interval history: Patient complains of having worse right lateral neck and right upper back pain today. White blood cell count is decreased from 12,000 yesterday 11,000 today. No fever. Exam Skin: Other: Posterior neck infected cyst still has cellulitic changes around it. It does extend to the right side of the neck the liver bed towards the anterior portion of the right side of the neck. It is mildly tender to palpation but I cannot appreciate any fluctuance around the area. Objective Data Vital Signs Vital Signs: Vital Signs - 24 hr 04/30/24 19:00 04/30/24 20:00 04/30/24 22:00 Temperature 36.5 C 36.6 C Pulse Rate 100 90 Respiratory Rate 20 14 Blood Pressure 120/6 L 132/98 H Pulse Oximetry 100 100 Oxygen Delivery Room Air 05/01/24 06:00 05/01/24 09:20 Temperature 37.0 C Pulse Rate 96 Respiratory Rate 18 Blood Pressure 122/89 Pulse Oximetry 98 Oxygen Delivery Room Air Intake/Output Intake/Output: Intake & Output 04/28/24 04/29/24 04/30/24 05/01/24 23:59 23:59 23:59 23:59 Intake Total 9697 1469 [id number] Output Total 4459 336 Balance 3935 8492 [id number] Meds/Results Medications: Active Medications Generic Name Dose Route Start Last Admin Trade Name Freq PRN Reason Stop Dose Admin Acetaminophen 650 mg 04/29/24 11:30 Acetaminophen 325 Mg Tablet PO Q4H PRN Mild Pain (1-3) or Fever Hydrocodone Bitart/Acetaminophen 1 tab 04/29/24 12:58 04/30/24 17:12 Hydrocodone/Acetaminophen (*Crx) 5-325 Mg Tablet PO 1 tab Q6H PRN Administration Pain Rated 4-6 Albuterol 2 puff 04/29/24 16:38 Albuterol Sulfate (*Sp) Aerosol 1 Puff INHALATION Q4H PRN shortness of breath or wheezing Alprazolam 0.25 mg 04/29/24 16:38 Alprazolam (*Crx) 0.25 Mg Tablet PO DAILY PRN anxiety Aspirin 81 mg 04/29/24 21:00 04/30/24 21:04 Aspirin 81 Mg Enteric Tablet PO 81 mg QHS CUBA Administration Brimonidine Tartrate 1 drop 04/30/24 09:00 05/01/24 09:15 Brimonidine Tartrate 0.15% 5 Ml Ophth Soln RIGHT EYE 1 drop DAILY CUBA Administration Dextrose 12.5 gm 04/29/24 13:02 Dextrose 50% 25 Gm/50 Ml Syringe IV PUSH PRN PRN Hypoglycemia Protocol Enoxaparin Sodium 40 mg 04/29/24 09:00 05/01/24 09:16 Enoxaparin 40 Mg/0.4 Ml Syringe SUB-Q 40 mg DAILY CUBA Administration Glucagon 1 mg 04/29/24 13:02 Glucagon For Inj 1 Mg Vial IM PRN PRN Hypoglycemia Protocol Glucose 15 gm 04/29/24 13:02 Glucose Oral Gel 15 Gm Of Glucse In 37.5 Gm Tube PO PRN PRN Hypoglycemia Protocol Dextrose 1,000 mls @ 100 mls/hr 04/29/24 13:02 Dextrose 5% 1,000 Ml IVPB PRN PRN Hypoglycemia Protocol Vancomycin HCl 2,000 mg in 500 mls @ 250 mls/hr 04/30/24 22:00 05/01/24 11:14 Vancomycin 2,000 Mg/Ns 500 Ml IVPB Infused Q12H CUBA Infusion Ceftriaxone Sodium 2 gm in 100 mls @ 200 mls/hr 05/01/24 14:00 05/01/24 14:04 Rocephin 2 Gm/Ns 100 Ml IVPB 200 mls/hr Q24H CUBA Administration Insulin Aspart 3 - 6 units 04/29/24 17:00 05/01/24 11:50 Insulin Aspart (*Bkc) 100 Units/Ml SUB-Q Not Given TIDWM [facility] Protocol Morphine Sulfate 4 mg 04/29/24 11:30 05/01/24 09:14 Morphine Sulfate (*Crx) 4 Mg/Ml Inj IV PUSH 4 mg Q2H PRN Administration Pain Rated 7-10 Mycophenolate Mofetil 500 mg 04/29/24 17:00 05/01/24 09:15 Mycophenolate Mofetil 250 Mg Capsule PO 500 mg BID CUBA Administration Ofloxacin 1 drop 04/29/24 17:00 05/01/24 09:15 Ofloxacin 0.3% Ophth Soln 5 Ml Btl EACH EYE 1 drop BID CUBA Administration Ondansetron HCl 4 mg 04/29/24 11:30 Ondansetron Inj 4 Mg/2 Ml Vial IV PUSH Q4H PRN Nausea Prednisolone Acetate 1 drop 04/29/24 17:00 05/01/24 09:15 Prednisolone Acetate 1% Ophth 5 Ml EACH EYE 1 drop BID CUBA Administration Simvastatin 40 mg 04/29/24 21:00 04/30/24 21:04 Simvastatin 20 Mg Tablet PO 40 mg QHS CUBA Administration Timolol Maleate 1 drop 04/29/24 21:00 04/30/24 21:05 Timolol Maleate 0.5% Op Soln 5 Ml Bottle RIGHT EYE 1 drop QHS CUBA Administration Valacyclovir HCl 1,000 mg 04/29/24 21:00 05/01/24 09:15 Valacyclovir Hcl 500 Mg Tablet PO 1,000 mg Q12HR CUBA Administration Zolpidem Tartrate 20 mg 04/29/24 16:38 04/30/24 21:03 Zolpidem Tartrate (*Crx) 5 Mg Tablet PO 20 mg QHS PRN Administration insomnia Radiology Results: ITS Impressions Soft Tissue Neck CT 04/29/24 09:43 IMPRESSION: Fat stranding in the posterior aspect of the neck subcutaneous tissues suggestive of cellulitis with focal area of fluid adjacent to the muscles on the right side with thickness of 6 mm suggestive of early abscess formation. Follow- up advised. Labs Labs: Laboratory Results - last 24 hr 04/30/24 04/30/24 04/30/24 16:58 19:54 20:38 WBC RBC Hgb Hct MCV MCH MCHC RDW Plt Count MPV Immature Gran % (Auto) Neut % (Auto) Lymph % (Auto) [place] % (Auto) Eos % (Auto) Baso % (Auto) Lymph # (Auto) [place] # (Auto) Eos # (Auto) Baso # (Auto) Abs Immat Gran (auto) Absolute Neuts (auto) Absolute Nucleated RBC Nucleated RBC % Sodium Potassium Chloride Carbon Dioxide Anion Gap BUN Creatinine Estim Creat Clear Calc Estimated GFR Glucose POC Capillary Glucose 139 H 183 H Calcium Total Bilirubin AST ALT Alkaline Phosphatase Total Protein Albumin Vancomycin Trough 7.2 L 05/01/24 05/01/24 05/01/24 06:04 08:00 11:41 WBC 11.0 H RBC 3.95 L Hgb 13.1 L Hct 37.5 L MCV 94.9 MCH 33.2 MCHC 34.9 RDW 12.3 Plt Count 230 MPV 9.4 Immature Gran % (Auto) 0.3 Neut % (Auto) 74.7 H Lymph % (Auto) 14.5 L [place] % (Auto) 7.7 Eos % (Auto) 2.3 Baso % (Auto) 0.5 Lymph # (Auto) 1.59 [place] # (Auto) 0.9 H Eos # (Auto) 0.3 Baso # (Auto) 0.1 Abs Immat Gran (auto) 0.03 Absolute Neuts (auto) 8.2 H Absolute Nucleated RBC 0.000 Nucleated RBC % 0.0 Sodium 134 L Potassium 3.8 Chloride 106 Carbon Dioxide 28 Anion Gap 0 L BUN 8 L Creatinine 0.80 Estim Creat Clear Calc 106 Estimated GFR > 60 Glucose 132 H POC Capillary Glucose 153 H 159 H Calcium 8.4 Total Bilirubin 0.8 AST 15 L ALT 17 Alkaline Phosphatase 57 Total Protein 6.0 L Albumin 3.4 L Vancomycin Trough
[2024-05-01 16:57] LABS: Glucose Point of Care 106 mg/dl (65-105)
[2024-05-01 20:00] VITALS: PULSE 96; RESP 18; O2SAT 100
[2024-05-01 20:33] LABS: Glucose Point of Care 188 mg/dl (65-105)
[2024-05-01] MEDS: TIMOLOL MALEATE 0.5% OP SOLN 5 ML BOTTLE 1 DROP RIGHT EYE (21:02)
[2024-05-01] MEDS: ASPIRIN 81 MG ENTERIC TABLET PO (21:02)
[2024-05-01] MEDS: SIMVASTATIN 20 MG TABLET 40 MG PO (21:02)
[2024-05-01] MEDS: ZOLPIDEM TARTRATE (*CRX) 5 MG TABLET 20 MG PO (21:03)
[2024-05-01] MEDS: VANCOMYCIN 2,000 MG/NS 500 ML 2,000 MG/500 ML BAG 125 MG IVPB (21:38)
[2024-05-01 22:00] VITALS: BP 134/91; PULSE 96; RESP 18; TEMP 36.3; O2SAT 100
[2024-05-02 05:47] VITALS: BP 125/83; PULSE 96; RESP 16; TEMP 36.4; O2SAT 98
[2024-05-02 07:58] LABS: Glucose Point of Care 138 mg/dl (65-105)
--- NOTE | 2024-05-02 08:13 | PM.IMPN ---
Progress Note: A&P Assessment and Plan (1) Sepsis: Qualifiers: Sepsis acute organ dysfunction status: without acute organ dysfunction Sepsis type: sepsis due to unspecified organism Qualified Code(s): A41.9 - Sepsis, unspecified organism Code(s): A41.9 - Sepsis, unspecified organism Status: Acute Assessment and Plan: - meets SIRS criteria: HR, WBC - lactic acid: 1.6 - 30 mL/kg = 2700, initially given 1L bolus in ED and started on maintenance fluids. Will add additional 1L bolus, has already received 1500 mL. - suspected source: Neck abscess - started on Zosyn and vancomycin, transitioned to vanc and rocephin on 05/01 - aerobic/anaerobic wound culture collected on 04/29: MRSA with resistance to fluoroquinolones, erythromycin, oxacillin, and bactrim - blood culture collected on 04/29: NGTD - monitor hemodynamics (2) Cellulitis and abscess of neck: Code(s): L03.221 - Cellulitis of neck; L02.11 - Cutaneous abscess of neck Status: Acute Assessment and Plan: - CT soft tissue neck 04/29: Fat stranding in the posterior aspect of the neck subcutaneous tissues suggestive of cellulitis with focal area of fluid adjacent to the muscles on the right side with thickness of 6 mm suggestive of early abscess formation. Follow-up advised. - Antibiotics: Vancomycin and Zosyn on 04/29, transitioned to vanc and rocephin on 05/01 - aerobic/anaerobic wound culture collected on 04/29: MRSA with resistance to fluoroquinolones, erythromycin, oxacillin, and bactrim - blood culture collected on 04/29: NGTD - Analgesics p.r.n. - Monitor vital signs, I&Os, neuro status and patient is a fall risk - Monitor serum electrolytes, CBC, cultures, WBC and temp curve - general surgery consulted, awaiting formal recs continue IV antibiotics and closely monitor if he develops a fluctuant area that is consistent with an abscess, then he could eventually require incision and drainage 05/01: Though WBC has improved patients pain and swelling has worsened. Swelling is now at the base of the posterior neck region extending toward the right shoulder and into the right side of the neck and his scalp. Worsening tenderness to palpation throughout and slight clear drainage from the originally site. Call made to surgery and will obtain a new CT to reassess abscess. - CT soft tissue neck: Posterior neck cellulitis and myositis. No abscess. 05/02: Pain and swelling has improved. (3) DM2 (diabetes mellitus, type 2): Qualifiers: Diabetes mellitus complication detail: with other skin complication Diabetes mellitus complication status: with skin complications Diabetes mellitus senior living insulin use: without model maker scale use Qualified Code(s): E11.628 - Type 2 diabetes mellitus with other skin complications Code(s): E11.9 - Type 2 diabetes mellitus without complications Status: Acute Assessment and Plan: - hypoglycemia protocol - POC blood glucose ACHS - home medication: Hold Ozempic (NF) and metformin, received contrast during initial evaluation. 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 Patient is pleasant lying comfortably in bed. He states that the pain and swelling has somewhat improved today and has noted more movement in his neck. He has no other complaints denying chest pain, shortness of breath, nausea/vomiting and abdominal pain. Review of Systems Review of Systems: All systems reviewed & are unremarkable except as noted in HPI and below Exam Narrative: AF HR 96 RR 16 Spo2 98 BP 125/83 General: male in no acute respiratory distress who is nontoxic appearing, lying semi recumbent in bed. Chest: Lungs are clear to auscultation bilaterally. No wheezes or crackles. CV: Heart was regular rate and rhythm. S1/S2. No murmurs, gallops, or rubs. Abd: Abdomen was soft. Nontender. Nondistended. Positive bowel sounds. No organomegaly or masses. Ext: No clubbing, cyanosis, or edema. 2+ DP pulses bilaterally. Neuro: Patient is alert. Speech is clear. Skin: Improved swelling to the base of the posterior neck region that extends toward the right shoulder and slightly up into the scalp. Tenderness to palpation throughout but worse on the right side. No drainage. Pain with movement of the head. Objective Data Vital Signs Vital Signs: Vital Signs - 24 hr 05/01/24 09:20 05/01/24 14:00 05/01/24 20:00 Temperature 98.2 F Pulse Rate 89 96 Respiratory Rate 20 18 Blood Pressure 130/70 Pulse Oximetry 93 100 Oxygen Delivery Room Air Room Air 05/01/24 22:00 05/02/24 05:47 Temperature 97.4 F L 97.5 F L Pulse Rate 96 96 Respiratory Rate 18 16 Blood Pressure 134/91 H 125/83 Pulse Oximetry 100 98 Oxygen Delivery Intake/Output Intake/Output: Intake & Output 04/29/24 04/30/24 05/01/24 05/02/24 23:59 23:59 23:59 23:59 Intake Total 2820 4195 512334 8701 Output Total 2700 560 800 Balance 2820 1495 454661 250 Meds/Results Medications: Active Medications Generic Name Dose Route Start Last Admin Trade Name Freq PRN Reason Stop Dose Admin Acetaminophen 650 mg 04/29/24 11:30 Acetaminophen 325 Mg Tablet PO Q4H PRN Mild Pain (1-3) or Fever Hydrocodone Bitart/Acetaminophen 1 tab 04/29/24 12:58 04/30/24 17:12 Hydrocodone/Acetaminophen (*Crx) 5-325 Mg Tablet PO 1 tab Q6H PRN Administration Pain Rated 4-6 Albuterol 2 puff 04/29/24 16:38 Albuterol Sulfate (*Sp) Aerosol 1 Puff INHALATION Q4H PRN shortness of breath or wheezing Alprazolam 0.25 mg 04/29/24 16:38 Alprazolam (*Crx) 0.25 Mg Tablet PO DAILY PRN anxiety Aspirin 81 mg 04/29/24 21:00 05/01/24 21:02 Aspirin 81 Mg Enteric Tablet PO 81 mg QHS CUBA Administration Brimonidine Tartrate 1 drop 04/30/24 09:00 05/01/24 09:15 Brimonidine Tartrate 0.15% 5 Ml Ophth Soln RIGHT EYE 1 drop DAILY CUBA Administration Dextrose 12.5 gm 04/29/24 13:02 Dextrose 50% 25 Gm/50 Ml Syringe IV PUSH PRN PRN Hypoglycemia Protocol Enoxaparin Sodium 40 mg 04/29/24 09:00 05/01/24 09:16 Enoxaparin 40 Mg/0.4 Ml Syringe SUB-Q 40 mg DAILY CUBA Administration Glucagon 1 mg 04/29/24 13:02 Glucagon For Inj 1 Mg Vial IM PRN PRN Hypoglycemia Protocol Glucose 15 gm 04/29/24 13:02 Glucose Oral Gel 15 Gm Of Glucse In 37.5 Gm Tube PO PRN PRN Hypoglycemia Protocol Dextrose 1,000 mls @ 100 mls/hr 04/29/24 13:02 Dextrose 5% 1,000 Ml IVPB PRN PRN Hypoglycemia Protocol Vancomycin HCl 2,000 mg in 500 mls @ 250 mls/hr 04/30/24 22:00 05/02/24 01:38 Vancomycin 2,000 Mg/Ns 500 Ml IVPB Infused Q12H CUBA Infusion Ceftriaxone Sodium 2 gm in 100 mls @ 200 mls/hr 05/01/24 14:00 05/01/24 14:34 Rocephin 2 Gm/Ns 100 Ml IVPB Infused Q24H CUBA Infusion Insulin Aspart 3 - 6 units 04/29/24 17:00 05/01/24 16:54 Insulin Aspart (*Bkc) 100 Units/Ml SUB-Q Not Given TIDWM [facility] Protocol Morphine Sulfate 4 mg 04/29/24 11:30 05/01/24 21:42 Morphine Sulfate (*Crx) 4 Mg/Ml Inj IV PUSH 4 mg Q2H PRN Administration Pain Rated 7-10 Mycophenolate Mofetil 500 mg 04/29/24 17:00 05/01/24 17:40 Mycophenolate Mofetil 250 Mg Capsule PO 500 mg BID CUBA Administration Ofloxacin 1 drop 04/29/24 17:00 05/01/24 17:40 Ofloxacin 0.3% Ophth Soln 5 Ml Btl EACH EYE 1 drop BID CUBA Administration Ondansetron HCl 4 mg 04/29/24 11:30 Ondansetron Inj 4 Mg/2 Ml Vial IV PUSH Q4H PRN Nausea Prednisolone Acetate 1 drop 04/29/24 17:00 05/01/24 17:40 Prednisolone Acetate 1% Ophth 5 Ml EACH EYE 1 drop BID CUBA Administration Simvastatin 40 mg 04/29/24 21:00 05/01/24 21:02 Simvastatin 20 Mg Tablet PO 40 mg QHS CUBA Administration Timolol Maleate 1 drop 04/29/24 21:00 05/01/24 21:02 Timolol Maleate 0.5% Op Soln 5 Ml Bottle RIGHT EYE 1 drop QHS CUBA Administration Valacyclovir HCl 1,000 mg 04/29/24 21:00 05/01/24 21:02 Valacyclovir Hcl 500 Mg Tablet PO 1,000 mg Q12HR CUBA Administration Zolpidem Tartrate 20 mg 04/29/24 16:38 05/01/24 21:03 Zolpidem Tartrate (*Crx) 5 Mg Tablet PO 20 mg QHS PRN Administration insomnia Radiology Results: ITS Impressions Soft Tissue Neck CT 05/01/24 16:37 IMPRESSION: 1. Posterior neck cellulitis and myositis. No abscess. Labs Labs: Laboratory Results - last 24 hr 05/01/24 05/01/24 05/01/24 11:41 16:53 20:25 POC Capillary Glucose 159 H 106 H 188 H 05/02/24 07:55 POC Capillary Glucose 138 H Quality VTE Prophylaxis VTE prophylaxis: pharmacologic ordered
[2024-05-02 09:13] LABS: Basophils Percent Auto 0.5 % (0.2-1.2); Eosinophils Absolute Auto 0.2 K/mm3 (0-0.3); Eosinophils Percent Auto 2.4 % (0-4.4); Hematocrit 37.9 % (42.0-52.0); Hemoglobin 13.4 g/dL (14.0-18.0); Immature Granulocyte Absolute 0.03 K/mm3 (0.00-0.031); Immature Granulocyte Percent A 0.3 % (0-0.5); Lymphocytes Absolute Auto 1.19 K/mm3 (0.9-3.2); Lymphocytes Percent Auto 13.5 % (18.3-44.2); Mean Corpuscular HGB Conc 35.4 g/dl (32-36); Mean Corpuscular Hemoglobin 33.4 pg (26-34); Mean Corpuscular Volume 94.5 fl (80-100); Mean Platelet Volume 9.2 fl (7.4-10.4); Monocytes Absolute Auto 0.6 K/mm3 (0.1-0.6); Monocytes Percent Auto 6.9 % (2.6-8.5); Neutrophils Absolute Auto 6.7 K/mm3 (1.3-6.7); Neutrophils Percent Auto 76.4 % (45.5-73.1); Platelet Count Result 252 k/mm3 (150-375); Red Blood Count 4.01 M/mm3 (4.6-6.20); Red Cell Distribution Width 12.2 % (11.5-14.5); White Blood Count 8.8 K/mm3 (4.5-10.0)
[2024-05-02] MEDS: HYDROcodone/acetaminophen (*CRX) 5-325 MG TABLET 1 TAB PO ×3 (09:15→23:10)
[2024-05-02] MEDS: ENOXAPARIN 40 MG/0.4 ML SYRINGE SUB-Q (09:17)
[2024-05-02 09:24] LABS: Alanine Aminotransferase 23 U/L (6-50); Albumin Level 3.6 g/dL (3.5-5.1); Alkaline Phosphatase 55 U/L (38-126); Anion Gap 1 mmol/L (4-12); Aspartate Amino Transferase 23 U/L (17-59); Bilirubin,Total 0.8 mg/dL (0.2-1.3); Blood Urea Nitrogen 10 mg/dL (9-20); Calcium 8.6 mg/dL (8.4-10.2); Carbon Dioxide 29 mmol/L (22-30); Chloride 105 mmol/L (98-107); Estimated CRCL calculation 95 ml/min; Estimated Glomerular Filt Rate > 60; Glucose 150 mg/dL (65-110); Potassium 4.3 mmol/L (3.4-5.0); Sodium 135 mmol/L (137-145)
[2024-05-02] MEDS: BRIMONIDINE TARTRATE 0.15% 5 ML OPHTH SOLN 1 DROP RIGHT EYE (09:24)
[2024-05-02] MEDS: mycophenolate mofetiL 250 MG CAPSULE 500 MG PO ×2 (09:24→17:08)
[2024-05-02] MEDS: valACYclovir HCL 500 MG TABLET 1000 MG PO ×2 (09:25→21:45)
[2024-05-02] MEDS: prednisoLONE ACETATE 1% OPHTH 5 ML 1 DROP EACH EYE ×2 (09:25→17:08)
[2024-05-02] MEDS: OFLOXACIN 0.3% OPHTH SOLN 5 ML BTL 1 DROP EACH EYE ×2 (09:25→17:08)
[2024-05-02 09:54] LABS: Vancomycin Trough 11.9 ug/mL (10.0-20.0)
[2024-05-02 11:44] LABS: Glucose Point of Care 167 mg/dl (65-105)
[2024-05-02] MEDS: VANCOMYCIN 2,000 MG/NS 500 ML 2,000 MG/500 ML BAG 250 MG IVPB ×2 (13:00→21:46)
[2024-05-02 14:00] VITALS: BP 119/84; PULSE 81; RESP 16; TEMP 36.4; O2SAT 99
[2024-05-02] MEDS: cefTRIAXone 2 GM/NS 100 ML 2 GM/100 ML BAG IVPB (14:57)
[2024-05-02 16:45] LABS: Glucose Point of Care 127 mg/dl (65-105)
--- NOTE | 2024-05-02 19:35 | P.PN_ITS ---
Progress Note: A&P Assessment and Plan (1) Cellulitis of neck: Code(s): L03.221 - Cellulitis of neck Status: Acute Assessment and Plan: Cellulitis of the leg is improved. I think his increased pain is likely due to some degree of myositis. Repeat CT of the neck showed no evidence of drainable abscess. Symptomatically he is better today. His white blood cell count is continued decrease in his normal today. I think that as long as his white blood cell count continues to be normal tomorrow and his pain continues to improve then he can likely be discharged home on oral antibiotics next 1 to 2 days. (2) Sepsis: Qualifiers: Sepsis type: sepsis due to unspecified organism Sepsis acute organ dysfunction status: without acute organ dysfunction Qualified Code(s): A41.9 - Sepsis, unspecified organism Code(s): A41.9 - Sepsis, unspecified organism Status: Acute Assessment and Plan: White blood cell count is normalized. No evidence of sepsis at this time. Continue IV antibiotics until discharge and then complete course of oral antibiotics at home Subjective Date/time seen: 05/02/24 19:35 Interval history: Patient states that the pain is posterior neck is better today. Since there is less swelling. White blood cell count has now normalized to 8000. CT scan of the neck yesterday showed continued soft tissue changes of cellulitis with edema and inflammation. He did show some myositis but no significant subcutaneous abscess. Exam Neck: Other: The posterior neck region still has some mild cellulitic changes with erythema and induration. There is less swelling today. He is able to have a broader range of motion of his neck with lateral movement and flexion and extension. No significant fluctuance is palpated. Objective Data Vital Signs Vital Signs: Vital Signs - 24 hr 05/01/24 20:00 05/01/24 22:00 05/02/24 05:47 Temperature 36.3 C L 36.4 C L Pulse Rate 96 96 96 Respiratory Rate 18 18 16 Blood Pressure 134/91 H 125/83 Pulse Oximetry 100 100 98 Oxygen Delivery Room Air 05/02/24 14:00 Temperature 36.4 C Pulse Rate 81 Respiratory Rate 16 Blood Pressure 119/84 Pulse Oximetry 99 Oxygen Delivery Intake/Output Intake/Output: Intake & Output 12/11/24 12/12/24 12/13/24 12/14/24 23:59 23:59 23:59 23:59 Intake Total 2828 4784 [id number] 7115 Output Total 2700 560 800 Balance 2820 0055 [id number] 0717 Meds/Results Medications: Active Medications Generic Name Dose Route Start Last Admin Trade Name Freq PRN Reason Stop Dose Admin Acetaminophen 650 mg 04/29/24 11:30 Acetaminophen 325 Mg Tablet PO Q4H PRN Mild Pain (1-3) or Fever Hydrocodone Bitart/Acetaminophen 1 tab 04/29/24 12:58 05/02/24 17:35 Hydrocodone/Acetaminophen (*Crx) 5-325 Mg Tablet PO 1 tab Q6H PRN Administration Pain Rated 4-6 Albuterol 2 puff 04/29/24 16:38 Albuterol Sulfate (*Sp) Aerosol 1 Puff INHALATION Q4H PRN shortness of breath or wheezing Alprazolam 0.25 mg 04/29/24 16:38 Alprazolam (*Crx) 0.25 Mg Tablet PO DAILY PRN anxiety Aspirin 81 mg 04/29/24 21:00 05/01/24 21:02 Aspirin 81 Mg Enteric Tablet PO 81 mg QHS CUBA Administration Brimonidine Tartrate 1 drop 04/30/24 09:00 05/02/24 09:24 Brimonidine Tartrate 0.15% 5 Ml Ophth Soln RIGHT EYE 1 drop DAILY CUBA Administration Dextrose 12.5 gm 04/29/24 13:02 Dextrose 50% 25 Gm/50 Ml Syringe IV PUSH PRN PRN Hypoglycemia Protocol Enoxaparin Sodium 40 mg 04/29/24 09:00 05/02/24 09:17 Enoxaparin 40 Mg/0.4 Ml Syringe SUB-Q 40 mg DAILY CUBA Administration Glucagon 1 mg 04/29/24 13:02 Glucagon For Inj 1 Mg Vial IM PRN PRN Hypoglycemia Protocol Glucose 15 gm 04/29/24 13:02 Glucose Oral Gel 15 Gm Of Glucse In 37.5 Gm Tube PO PRN PRN Hypoglycemia Protocol Dextrose 1,000 mls @ 100 mls/hr 04/29/24 13:02 Dextrose 5% 1,000 Ml IVPB PRN PRN Hypoglycemia Protocol Vancomycin HCl 2,000 mg in 500 mls @ 250 mls/hr 04/30/24 22:00 05/02/24 15:00 Vancomycin 2,000 Mg/Ns 500 Ml IVPB Infused Q12H CUBA Infusion Ceftriaxone Sodium 2 gm in 100 mls @ 200 mls/hr 05/01/24 14:00 05/02/24 14:57 Rocephin 2 Gm/Ns 100 Ml IVPB 200 mls/hr Q24H CUBA Administration Insulin Aspart 3 - 6 units 04/29/24 17:00 05/02/24 17:08 Insulin Aspart (*Bkc) 100 Units/Ml SUB-Q Not Given TIDWM [facility] Protocol Morphine Sulfate 4 mg 04/29/24 11:30 05/01/24 21:42 Morphine Sulfate (*Crx) 4 Mg/Ml Inj IV PUSH 4 mg Q2H PRN Administration Pain Rated 7-10 Mycophenolate Mofetil 500 mg 04/29/24 17:00 05/02/24 17:08 Mycophenolate Mofetil 250 Mg Capsule PO 500 mg BID CUBA Administration Ofloxacin 1 drop 04/29/24 17:00 05/02/24 17:08 Ofloxacin 0.3% Ophth Soln 5 Ml Btl EACH EYE 1 drop BID CUBA Administration Ondansetron HCl 4 mg 04/29/24 11:30 Ondansetron Inj 4 Mg/2 Ml Vial IV PUSH Q4H PRN Nausea Prednisolone Acetate 1 drop 04/29/24 17:00 05/02/24 17:08 Prednisolone Acetate 1% Ophth 5 Ml EACH EYE 1 drop BID CUBA Administration Simvastatin 40 mg 04/29/24 21:00 05/01/24 21:02 Simvastatin 20 Mg Tablet PO 40 mg QHS CUBA Administration Timolol Maleate 1 drop 04/29/24 21:00 05/01/24 21:02 Timolol Maleate 0.5% Op Soln 5 Ml Bottle RIGHT EYE 1 drop QHS CUBA Administration Valacyclovir HCl 1,000 mg 04/29/24 21:00 05/02/24 09:25 Valacyclovir Hcl 500 Mg Tablet PO 1,000 mg Q12HR CUBA Administration Zolpidem Tartrate 20 mg 04/29/24 16:38 05/01/24 21:03 Zolpidem Tartrate (*Crx) 5 Mg Tablet PO 20 mg QHS PRN Administration insomnia Radiology Results: ITS Impressions Soft Tissue Neck CT 05/01/24 16:37 IMPRESSION: 1. Posterior neck cellulitis and myositis. No abscess. Labs Labs: Laboratory Results - last 24 hr 05/01/24 05/02/24 05/02/24 20:25 07:55 09:07 WBC 8.8 RBC 4.01 L Hgb 13.4 L Hct 37.9 L MCV 94.5 MCH 33.4 MCHC 35.4 RDW 12.2 Plt Count 252 MPV 9.2 Immature Gran % (Auto) 0.3 Neut % (Auto) 76.4 H Lymph % (Auto) 13.5 L [place] % (Auto) 6.9 Eos % (Auto) 2.4 Baso % (Auto) 0.5 Lymph # (Auto) 1.19 [place] # (Auto) 0.6 Eos # (Auto) 0.2 Baso # (Auto) 0.0 Abs Immat Gran (auto) 0.03 Absolute Neuts (auto) 6.7 Absolute Nucleated RBC 0.000 Nucleated RBC % 0.0 Sodium 135 L Potassium 4.3 Chloride 105 Carbon Dioxide 29 Anion Gap 1 L BUN 10 Creatinine 0.90 Estim Creat Clear Calc 95 Estimated GFR > 60 Glucose 150 H POC Capillary Glucose 188 H 138 H Calcium 8.6 Total Bilirubin 0.8 AST 23 ALT 23 Alkaline Phosphatase 55 Total Protein 6.0 L Albumin 3.6 Vancomycin Trough 05/02/24 05/02/24 05/02/24 09:32 11:41 16:42 WBC RBC Hgb Hct MCV MCH MCHC RDW Plt Count MPV Immature Gran % (Auto) Neut % (Auto) Lymph % (Auto) [place] % (Auto) Eos % (Auto) Baso % (Auto) Lymph # (Auto) [place] # (Auto) Eos # (Auto) Baso # (Auto) Abs Immat Gran (auto) Absolute Neuts (auto) Absolute Nucleated RBC Nucleated RBC % Sodium Potassium Chloride Carbon Dioxide Anion Gap BUN Creatinine Estim Creat Clear Calc Estimated GFR Glucose POC Capillary Glucose 167 H 127 H Calcium Total Bilirubin AST ALT Alkaline Phosphatase Total Protein Albumin Vancomycin Trough 11.9
[2024-05-02 20:37] LABS: Glucose Point of Care 138 mg/dl (65-105)
[2024-05-02 21:26] VITALS: BP 140/93; PULSE 82; RESP 16; TEMP 36.4; O2SAT 100
[2024-05-02] MEDS: ZOLPIDEM TARTRATE (*CRX) 5 MG TABLET 20 MG PO (21:45)
[2024-05-02] MEDS: ASPIRIN 81 MG ENTERIC TABLET PO (21:45)
[2024-05-02] MEDS: SIMVASTATIN 20 MG TABLET 40 MG PO (21:45)
[2024-05-02] MEDS: TIMOLOL MALEATE 0.5% OP SOLN 5 ML BOTTLE 1 DROP RIGHT EYE (21:46)
[2024-05-03 06:00] VITALS: BP 108/71; PULSE 82; RESP 16; TEMP 36.1; O2SAT 98
[2024-05-03 06:12] LABS: Basophils Percent Auto 0.6 % (0.2-1.2); Eosinophils Absolute Auto 0.3 K/mm3 (0-0.3); Eosinophils Percent Auto 4.3 % (0-4.4); Hematocrit 38.6 % (42.0-52.0); Hemoglobin 13.7 g/dL (14.0-18.0); Immature Granulocyte Absolute 0.04 K/mm3 (0.00-0.031); Immature Granulocyte Percent A 0.6 % (0-0.5); Lymphocytes Absolute Auto 1.43 K/mm3 (0.9-3.2); Lymphocytes Percent Auto 20.5 % (18.3-44.2); Mean Corpuscular HGB Conc 35.5 g/dl (32-36); Mean Corpuscular Hemoglobin 33.5 pg (26-34); Mean Corpuscular Volume 94.4 fl (80-100); Monocytes Absolute Auto 0.6 K/mm3 (0.1-0.6); Monocytes Percent Auto 8.5 % (2.6-8.5); Neutrophils Absolute Auto 4.6 K/mm3 (1.3-6.7); Neutrophils Percent Auto 65.5 % (45.5-73.1); Platelet Count Result 260 k/mm3 (150-375); Red Blood Count 4.09 M/mm3 (4.6-6.20); Red Cell Distribution Width 12.2 % (11.5-14.5)
[2024-05-03 06:23] LABS: Alanine Aminotransferase 33 U/L (6-50); Albumin Level 3.5 g/dL (3.5-5.1); Alkaline Phosphatase 56 U/L (38-126); Anion Gap 3 mmol/L (4-12); Aspartate Amino Transferase 27 U/L (17-59); Bilirubin,Total 0.4 mg/dL (0.2-1.3); Blood Urea Nitrogen 12 mg/dL (9-20); Calcium 8.9 mg/dL (8.4-10.2); Carbon Dioxide 27 mmol/L (22-30); Chloride 106 mmol/L (98-107); Estimated CRCL calculation 106 ml/min; Estimated Glomerular Filt Rate > 60; Glucose 140 mg/dL (65-110); Potassium 3.8 mmol/L (3.4-5.0); Sodium 136 mmol/L (137-145)
[2024-05-03 08:00] VITALS: PULSE 82; RESP 16; O2SAT 98
[2024-05-03 08:12] LABS: Glucose Point of Care 130 mg/dl (65-105)
[2024-05-03] MEDS: valACYclovir HCL 500 MG TABLET 1000 MG PO (09:34)
[2024-05-03] MEDS: BRIMONIDINE TARTRATE 0.15% 5 ML OPHTH SOLN 1 DROP RIGHT EYE (09:34)
[2024-05-03] MEDS: OFLOXACIN 0.3% OPHTH SOLN 5 ML BTL 1 DROP EACH EYE (09:34)
[2024-05-03] MEDS: prednisoLONE ACETATE 1% OPHTH 5 ML 1 DROP EACH EYE (09:34)
[2024-05-03] MEDS: mycophenolate mofetiL 250 MG CAPSULE 500 MG PO (09:34)
[2024-05-03] MEDS: ENOXAPARIN 40 MG/0.4 ML SYRINGE SUB-Q (09:34)
[2024-05-03 09:36] VITALS: O2SAT 98
[2024-05-03] MEDS: HYDROcodone/acetaminophen (*CRX) 5-325 MG TABLET 1 TAB PO (09:37)
[2024-05-03] MEDS: VANCOMYCIN 2,000 MG/NS 500 ML 2,000 MG/500 ML BAG 250 MG IVPB (09:39)
[2024-05-03 11:42] LABS: Glucose Point of Care 134 mg/dl (65-105)
--- NOTE | 2024-05-03 12:42 | P.PN_ITS ---
Progress Note: A&P Assessment and Plan (1) Cellulitis of neck: Code(s): L03.221 - Cellulitis of neck Status: Acute Assessment and Plan: Cellulitis seems to be slowly resolving. White blood count is normal. can stop IV antibiotics and transition to oral antibiotics. The cultures show MRSA which is sensitive to clindamycin. Patient may be discharged home from a surgical standpoint. We will give a prescription for clindamycin to take for the next 14 days. He can follow-up see me in my office in about 2 to 3 weeks. Subjective Date/time seen: 05/03/24 12:42 Interval history: Patient seems to be improving daily. Less neck pain today. Full range of motion of the neck without much difficulty. White blood count is even lower in still normal. No fever. Cultures of the neck wound showed MRSA sensitive to clindamycin. Exam Skin: Other: Posterior neck cellulitis is improving. Less redness but still has some mild induration. The small opening has closed and has a scab. There is no drainage at this time. For range of motion of the neck. Objective Data Vital Signs Vital Signs: Vital Signs - 24 hr 05/02/24 14:00 05/02/24 20:00 05/02/24 21:26 Temperature 36.4 C 36.4 C Pulse Rate 81 82 Respiratory Rate 16 16 Blood Pressure 119/84 140/93 H Pulse Oximetry 99 100 Oxygen Delivery Room Air Fraction of Inspired Oxygen 05/03/24 06:00 05/03/24 09:36 Temperature 36.1 C L Pulse Rate 82 Respiratory Rate 16 Blood Pressure 108/71 Pulse Oximetry 98 98 Oxygen Delivery Room Air Fraction of Inspired Oxygen 21 Intake/Output Intake/Output: Intake & Output 04/30/24 05/01/24 05/02/24 05/03/24 23:59 23:59 23:59 23:59 Intake Total 4195 [id number] 4416 1150 Output Total 2700 560 800 Balance 1495 [id number] 0857 1150 Meds/Results Medications: Active Medications Generic Name Dose Route Start Last Admin Trade Name Freq PRN Reason Stop Dose Admin Acetaminophen 650 mg 04/29/24 11:30 Acetaminophen 325 Mg Tablet PO Q4H PRN Mild Pain (1-3) or Fever Hydrocodone Bitart/Acetaminophen 1 tab 04/29/24 12:58 05/03/24 09:37 Hydrocodone/Acetaminophen (*Crx) 5-325 Mg Tablet PO 1 tab Q6H PRN Administration Pain Rated 4-6 Albuterol 2 puff 04/29/24 16:38 Albuterol Sulfate (*Sp) Aerosol 1 Puff INHALATION Q4H PRN shortness of breath or wheezing Alprazolam 0.25 mg 04/29/24 16:38 Alprazolam (*Crx) 0.25 Mg Tablet PO DAILY PRN anxiety Aspirin 81 mg 04/29/24 21:00 05/02/24 21:45 Aspirin 81 Mg Enteric Tablet PO 81 mg QHS CUBA Administration Brimonidine Tartrate 1 drop 04/30/24 09:00 05/03/24 09:34 Brimonidine Tartrate 0.15% 5 Ml Ophth Soln RIGHT EYE 1 drop DAILY CUBA Administration Dextrose 12.5 gm 04/29/24 13:02 Dextrose 50% 25 Gm/50 Ml Syringe IV PUSH PRN PRN Hypoglycemia Protocol Enoxaparin Sodium 40 mg 04/29/24 09:00 05/03/24 09:34 Enoxaparin 40 Mg/0.4 Ml Syringe SUB-Q 40 mg DAILY CUBA Administration Glucagon 1 mg 04/29/24 13:02 Glucagon For Inj 1 Mg Vial IM PRN PRN Hypoglycemia Protocol Glucose 15 gm 04/29/24 13:02 Glucose Oral Gel 15 Gm Of Glucse In 37.5 Gm Tube PO PRN PRN Hypoglycemia Protocol Dextrose 1,000 mls @ 100 mls/hr 04/29/24 13:02 Dextrose 5% 1,000 Ml IVPB PRN PRN Hypoglycemia Protocol Vancomycin HCl 2,000 mg in 500 mls @ 250 mls/hr 04/30/24 22:00 05/03/24 09:39 Vancomycin 2,000 Mg/Ns 500 Ml IVPB 250 mls/hr Q12H CBUA Administration Ceftriaxone Sodium 2 gm in 100 mls @ 200 mls/hr 05/01/24 14:00 05/02/24 14:57 Rocephin 2 Gm/Ns 100 Ml IVPB 200 mls/hr Q24H CUBA Administration Insulin Aspart 3 - 6 units 04/29/24 17:00 05/03/24 09:34 Insulin Aspart (*Bkc) 100 Units/Ml SUB-Q Not Given TIDWM CUBA Protocol Morphine Sulfate 4 mg 04/29/24 11:30 05/01/24 21:42 Morphine Sulfate (*Crx) 4 Mg/Ml Inj IV PUSH 4 mg Q2H PRN Administration Pain Rated 7-10 Mycophenolate Mofetil 500 mg 04/29/24 17:00 05/03/24 09:34 Mycophenolate Mofetil 250 Mg Capsule PO 500 mg BID CUBA Administration Ofloxacin 1 drop 04/29/24 17:00 05/03/24 09:34 Ofloxacin 0.3% Ophth Soln 5 Ml Btl EACH EYE 1 drop BID CUBA Administration Ondansetron HCl 4 mg 04/29/24 11:30 Ondansetron Inj 4 Mg/2 Ml Vial IV PUSH Q4H PRN Nausea Prednisolone Acetate 1 drop 04/29/24 17:00 05/03/24 09:34 Prednisolone Acetate 1% Ophth 5 Ml EACH EYE 1 drop BID CUBA Administration Simvastatin 40 mg 04/29/24 21:00 05/02/24 21:45 Simvastatin 20 Mg Tablet PO 40 mg QHS CUBA Administration Timolol Maleate 1 drop 04/29/24 21:00 05/02/24 21:46 Timolol Maleate 0.5% Op Soln 5 Ml Bottle RIGHT EYE 1 drop QHS CUBA Administration Valacyclovir HCl 1,000 mg 04/29/24 21:00 05/03/24 09:34 Valacyclovir Hcl 500 Mg Tablet PO 1,000 mg Q12HR CUBA Administration Zolpidem Tartrate 20 mg 04/29/24 16:38 05/02/24 21:45 Zolpidem Tartrate (*Crx) 5 Mg Tablet PO 20 mg QHS PRN Administration insomnia Radiology Results: ITS Impressions Soft Tissue Neck CT 05/01/24 16:37 IMPRESSION: 1. Posterior neck cellulitis and myositis. No abscess. Labs Labs: Laboratory Results - last 24 hr 05/02/24 05/02/24 05/03/24 16:42 20:14 05:54 WBC 7.0 RBC 4.09 L Hgb 13.7 L Hct 38.6 L MCV 94.4 MCH 33.5 MCHC 35.5 RDW 12.2 Plt Count 260 MPV 9.0 Immature Gran % (Auto) 0.6 H Neut % (Auto) 65.5 Lymph % (Auto) 20.5 [place] % (Auto) 8.5 Eos % (Auto) 4.3 Baso % (Auto) 0.6 Lymph # (Auto) 1.43 [place] # (Auto) 0.6 Eos # (Auto) 0.3 Baso # (Auto) 0.0 Abs Immat Gran (auto) 0.04 H Absolute Neuts (auto) 4.6 Absolute Nucleated RBC 0.000 Nucleated RBC % 0.0 Sodium 136 L Potassium 3.8 Chloride 106 Carbon Dioxide 27 Anion Gap 3 L BUN 12 Creatinine 0.80 Estim Creat Clear Calc 106 Estimated GFR > 60 Glucose 140 H POC Capillary Glucose 127 H 138 H Calcium 8.9 Total Bilirubin 0.4 AST 27 ALT 33 Alkaline Phosphatase 56 Total Protein 6.0 L Albumin 3.5 05/03/24 05/03/24 07:56 11:40 WBC RBC Hgb Hct MCV MCH MCHC RDW Plt Count MPV Immature Gran % (Auto) Neut % (Auto) Lymph % (Auto) [place] % (Auto) Eos % (Auto) Baso % (Auto) Lymph # (Auto) [place] # (Auto) Eos # (Auto) Baso # (Auto) Abs Immat Gran (auto) Absolute Neuts (auto) Absolute Nucleated RBC Nucleated RBC % Sodium Potassium Chloride Carbon Dioxide Anion Gap BUN Creatinine Estim Creat Clear Calc Estimated GFR Glucose POC Capillary Glucose 130 H 134 H Calcium Total Bilirubin AST ALT Alkaline Phosphatase Total Protein Albumin
--- NOTE | 2024-05-03 13:54 | P.DS_ITS ---
DS: Admitting Diagnosis Discharge Date 05/03/2024 Admitting Diagnosis Sepsis Cellulitis and abscess of neck DM2 DS: Discharge Diagnosis Discharge Diagnosis (1) Sepsis: Qualifiers: Sepsis acute organ dysfunction status: without acute organ dysfunction Sepsis type: sepsis due to unspecified organism Qualified Code(s): A41.9 - Sepsis, unspecified organism Code(s): A41.9 - Sepsis, unspecified organism Status: Acute (2) Cellulitis and abscess of neck: Code(s): L03.221 - Cellulitis of neck; L02.11 - Cutaneous abscess of neck Status: Acute (3) DM2 (diabetes mellitus, type 2): Qualifiers: Diabetes mellitus complication detail: with other skin complication Diabetes mellitus complication status: with skin complications Diabetes mellitus snf insulin 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 Patient meeting sepsis criteria on admission with leukocytosis and tachycardia. Latic WNL. Given sepsis fluid boluses at that time. CT soft tissue neck showed fat stranding in the posterior aspect of the neck subcutaneous tissues suggestive of cellulitis with focal area of fluid adjacent to the muscles on the right side with thickness of 6 mm suggestive of early abscess formation. Blood cultures collected, NGTD. Abscess culture collected, MRSA with resistance to fluoroquinolones, erythromycin, oxacillin, and bactrim. Patient started on IV antibiotics and surgery consulted. Per surgery no surgical intervention required at that time, continue medical management. On 05/01 though WBC had improved patients pain and swelling had worsened. Repeat CT showed posterior neck cellulitis and myositis but no abscess. Again per surgery no intervention required. Throughout admission patients cellulitis continued to improve and his WBC returned to normal limits. On date of discharge surgery evaluated patient and states that he is stable for discharge from a surgical standpoint. Patient transitioned from IV antibiotics to oral clindamycin per blood culture sensitivities. He is to follow up with surgery in the office in 2 weeks. Patient has no complaints at time of disch arge, denying chest pain, shortness of breath, nausea/vomiting and abdominal pain. He states that his pain to his neck has improved and has full range of motion to his neck. Patient discharged home in a stable condition. He is to complete his antibiotics as prescribed. He is to follow up with his PCP in 1 weeks and surgery as scheduled. Status at Discharge Functional status at discharge: independent ambulation Time Spent with Patient Time attestation: Total time spent providing and/or coordinating discharge services: Time spent: Greater than 30 minutes Exam Narrative: AF HR 82 RR 16 SpO2 98 BP 108/71 General: male in no acute respiratory distress who is nontoxic appearing, lying semi recumbent in bed. Chest: Lungs are clear to auscultation bilaterally. No wheezes or crackles. CV: Heart was regular rate and rhythm. S1/S2. No murmurs, gallops, or rubs. Abd: Abdomen was soft. Nontender. Nondistended. Positive bowel sounds. No organomegaly or masses. Ext: No clubbing, cyanosis, or edema. 2+ DP pulses bilaterally. Neuro: Patient is alert. Speech is clear. Skin: Swelling continues to improve to the base of the posterior neck region that extends toward the right shoulder and slightly up into the scalp. Less tenderness to palpation.No drainage, scab noted. Full range of motion to the head. DS: Data Data Completed and Pending Completed studies during hospitalization: CT soft tissue neck CT soft tissue neck Labs on day of discharge: Labs from last 24 hours 05/03/24 05/03/24 05/03/24 11:40 07:56 05:54 WBC 7.0 RBC 4.09 L Hgb 13.7 L Hct 38.6 L MCV 94.4 MCH 33.5 MCHC 35.5 RDW 12.2 Plt Count 260 MPV 9.0 Immature Gran % (Auto) 0.6 H Neut % (Auto) 65.5 Lymph % (Auto) 20.5 [place] % (Auto) 8.5 Eos % (Auto) 4.3 Baso % (Auto) 0.6 Lymph # (Auto) 1.43 [place] # (Auto) 0.6 Eos # (Auto) 0.3 Baso # (Auto) 0.0 Abs Immat Gran (auto) 0.04 H Absolute Neuts (auto) 4.6 Absolute Nucleated RBC 0.000 Nucleated RBC % 0.0 Sodium 136 L Potassium 3.8 Chloride 106 Carbon Dioxide 27 Anion Gap 3 L BUN 12 Creatinine 0.80 Estim Creat Clear Calc 106 Estimated GFR > 60 Glucose 140 H POC Capillary Glucose 134 H 130 H Calcium 8.9 Total Bilirubin 0.4 AST 27 ALT 33 Alkaline Phosphatase 56 Total Protein 6.0 L Albumin 3.5 05/02/24 05/02/24 20:14 16:42 WBC RBC Hgb Hct MCV MCH MCHC RDW Plt Count MPV Immature Gran % (Auto) Neut % (Auto) Lymph % (Auto) [place] % (Auto) Eos % (Auto) Baso % (Auto) Lymph # (Auto) [place] # (Auto) Eos # (Auto) Baso # (Auto) Abs Immat Gran (auto) Absolute Neuts (auto) Absolute Nucleated RBC Nucleated RBC % Sodium Potassium Chloride Carbon Dioxide Anion Gap BUN Creatinine Estim Creat Clear Calc Estimated GFR Glucose POC Capillary Glucose 138 H 127 H Calcium Total Bilirubin AST ALT Alkaline Phosphatase Total Protein Albumin Preliminary micro results at discharge 04/29/24 16:17 Anaerobic Culture - Preliminary Abscess 04/29/24 08:35 Blood Culture - Preliminary Blood 04/29/24 08:36 Blood Culture - Preliminary Blood Discharge Plan Discharge Attending physician on discharge: Nico Farooq Consulting providers: Ruy Gutierrez Discharging Clinician: Kristy Gutierrez Anticipated Discharge Date/Time: 05/03/24 13:32 Patient Disposition: Home, Self-Care Activity: may shower Diet: as tolerated and diabetic Discharge Instructions: Discharge instructions: Patient admitted to the hospital for cellulitis and abscess to the neck as seen on imaging Culture growing MRSA, attached is information on MRSA and steps to follow Started on IV antibiotics and surgery consulted Per surgery no surgical intervention required at this time Repeat imaging showed improvement Patient may shower. No need to put dressing on and posterior neck wound unless there is any drainage. Prescription for clindamycin on chart, take medication as prescribed even if feeling better. Attached is information on this medication Take norco as needed for pain, do not drive or operate heavy machinery on this medication. Attached is information on this medication. No activity restrictions. Patient to return to see Dr. Gutierrez in the office and 2 to 3 weeks for follow-up. Patient to call surgical office for an appointment. Encouraged to continue with yearly vaccinations Return to the emergency department if he developed sudden shortness of breath, chest pain, nausea, vomiting, upset stomach or intractable diarrhea Return to the emergency department if you develop fever greater than 101.5 Follow-up with the primary care physician within 1 weeks Thank you for [facility] for your healthcare needs Patient Instructions: Antibiotic Form, Clindamycin (By mouth), Hydrocodone/Acetaminophen (By mouth), MRSA (Methicillin-Resistant Staphylococcus Aureus) (DC), Cellulitis (GEN) Patient Language: Dominican Stand Alone Forms: General Discharge Information Follow-up/Referrals: UNKNOWN,DOCTOR [Primary Care Provider] - 1 Week Ruy Gutierrez MD [Physician] - Call for Appointment ( Follow up to see Dr. Gutierrez the office in 2 to 3 weeks.) Discharge Medications: New clindamycin HCl 300 mg capsule 300 mg PO TID Qty: 45 0RF hydrocodone-acetaminophen 5-325 mg Tablet 1 tablet PO Q6H PRN (Reason: Pain Rated 4-6) Qty: 8 0RF Continued albuterol sulfate 90 mcg/actuation HFA aerosol inhaler 2 puff INHALATION Q4H PRN (Reason: shortness of breath or wheezing) alprazolam 0.25 mg tablet 0.25 mg PO DAILY PRN (Reason: anxiety) brimonidine 0.15 % drops 1 drp RIGHT EYE DAILY Vyzulta 0.024 % drops 1 drp RIGHT EYE QHS metformin 500 mg tablet 500 mg PO QPM mycophenolate mofetil 250 mg capsule 500 mg PO BID ofloxacin 0.3 % drops 1 drp EACH EYE BID prednisolone acetate 1 % drops,suspension 1 drp EACH EYE BID Ozempic 0.25 mg or 0.5 mg (2 mg/3 mL) pen injector 0.25 mg SUBCUT WEEKLY Patient Comments: on Saturday simvastatin 40 mg tablet 40 mg PO QHS timolol maleate 0.5 % drops 1 drp RIGHT EYE QHS valacyclovir 1 gram tablet 1,000 mg PO Q12H zolpidem 10 mg tablet 20 mg PO QHS PRN (Reason: insomnia) aspirin [Adult Aspirin Regimen] 81 mg tablet,delayed release (DR/EC) 81 mg PO QHS Date of admission: 04/30/24 10:10 Primary Care Provider: UNKNOWN,DOCTOR Admitting Provider: Vargas Mathew Attending physician on admission: Kristy Gutierrez Condition: Stable Hospitalist MIPS Heart Failure (Exclusion) Patient has history of Heart Transplant or Left Ventricular Assistive Device?: No IF YES, STOP HERE Heart Failure (Qualifier) Patient has current or prior documentation of LVEF less than or equal to 40%, or mod/servere depressed LVSF?: No IF NO, STOP HERE
[2024-05-03 14:00] VITALS: PULSE 82; RESP 16; O2SAT 98
[2024-05-03] MEDS: cefTRIAXone 2 GM/NS 100 ML 2 GM/100 ML BAG IVPB (14:12)
== END 2024-05-03 15:10 | disposition home or self-care (01) | DRG 603 ==
LOC: ANHED 10:39 → ANH3MEDSUR 11:52
PROVIDERS: Student in an Organized Health Care Education/Training Program; Admitting Provider Internal Medicine; Emergency Provider Emergency Medicine; Visit Provider Internal Medicine
DX: L03.221 Cellulitis of neck (principal); Z16.23 Resistance to quinolones and fluoroquinolones; Z16.39 Resistance to other specified antimicrobial drug; L02.11 Cutaneous abscess of neck; E11.628 Type 2 diabetes mellitus with other skin complications; B95.62 Methicillin resistant Staphylococcus aureus infection as the cause of diseases classified elsewhere; M60.9 Myositis, unspecified; H54.3 Unqualified visual loss, both eyes; T26 Burn and corrosion confined to eye and adnexa
CPT/HCPCS: 36415; 70491; 80048; 80053; 80202; 82948; 83036; 83605; 85025; 86140; 87040; 87070; 87075; 87181; 87205; 96361; 96365; 96366; 96375; 96376; 99285; A9270; G0378; J0696; J1171; J1650; J1815; J1885; J2270; J2405; J2543; J3370; J7030; J7120; J7517; Q9967